=== PATIENT | female | born 1960 | race Caucasian/White ===

== ENCOUNTER 2017-11-08 13:53 | Emergency (ER) | payer OTHER, SELFPAY ==
[2017-11-08 13:57] VITALS: BP 135/74; PULSE 85; RESP 18; TEMP 36.7; O2SAT 99
--- NOTE | 2017-11-08 14:13 | ED.ABDPAIN ---
HPI - Abdominal Pain <Shantal Chung PA-C - Last Filed: 11/08/17 17:41> General Chief Complaint: Abdominal Pain Stated Complaint: PAIN UPPER RT ABD AND BACK,INDIGESTION Time Seen by Provider: 11/08/17 14:12 Source: patient Mode of arrival: ambulatory Limitations: no limitations History of Present Illness HPI narrative: This 57-year-old female complains of onset of gradually worsening right flank and right upper quadrant pain for the last 3 days. She states initially it seemed more in her back, but now she is feeling and more in the right abdomen and feels like it radiates in between. She states that she seems to have severe indigestion whenever she eats, which she describes as belching and heartburn. She states the type of food does not matter, so she has not been eating. She states that the pain is constant, maybe worse with sitting and lying down versus standing up. She does not have pain elsewhere in the abdomen. She has not had fever, nausea, or vomiting. She has not had any urinary symptoms, changes in bowel movements or blood in the stools. She describes her indigestion as clear heartburn that worsens when she lies down and after she eats. She has had this intermittently for years but has also been more persistent recently. She has not had any dyspnea or other new complaints on systems review Related Data Home Medications Medication Instructions Recorded Confirmed minocycline 1 cap PO PRN PRN 11/08/17 11/08/17 Previous Rx's Medication Instructions Recorded meloxicam 15 mg PO DAILY #10 tab 11/08/17 Allergies Allergy/AdvReac Type Severity Reaction Status Date / Time No Known Allergies Allergy Uncoded 09/14/17 12:49 Review of Systems <Shantal Chung PA-C - Last Filed: 11/08/17 17:41> Review of Systems All systems reviewed & are unremarkable except as noted in HPI and below Exam <Shantal Chung PA-C - Last Filed: 11/08/17 17:41> Narrative Exam Narrative: GENERAL APPEARANCE: Patient appears mildly uncomfortable, walking around the exam room, in NAD HEENT: PERRL, EOMI, no scleral icterus NECK: Supple LUNGS: Clear to auscultation bilaterally. HEART: Rate and rhythm regular, normal S1 and S2, no S3 or S4. ABDOMEN: Soft, nondistended, bowel sounds present x 4 quadrants, no masses palpable, no hepatosplenomegaly. She is tender most in the right upper quadrant a few cm distal to the costal margin, no tenderness elsewhere in the abdomen, no guarding or rebound, no CVAT EXTREMITIES: No edema, no cyanosis DERMATOLOGIC: No jaundice or exanthem NEUROLOGIC: Alert and oriented with normal speech and coordination Initial Vital Signs Initial Vital Signs: Vital Signs Temperature 98.0 F 11/08/17 13:57 Pulse Rate 85 11/08/17 13:57 Respiratory Rate 18 11/08/17 13:57 Blood Pressure 135/74 H 11/08/17 13:57 Pulse Oximetry 99 11/08/17 13:57 <Kevon Delarosa MD - Last Filed: 12/23/17 07:36> Initial Vital Signs Initial Vital Signs: Vital Signs Temperature 98.0 F 11/08/17 13:57 Pulse Rate 85 11/08/17 13:57 Respiratory Rate 18 11/08/17 13:57 Blood Pressure 135/74 H 11/08/17 13:57 Pulse Oximetry 99 11/08/17 13:57 Course <Shantal Chung PA-C - Last Filed: 11/08/17 17:41> Hospital Course: Patient reported that right upper quadrant pain was largely resolved and acid reflux symptoms completely resolved medications. Discussed no clear findings to determine the source of her right upper quadrant pain on lab studies or ultrasound, however unlikely to be an acute surgical issue. Since she is feeling better, advised medications as on discharge, and close follow-up (see PCP tomorrow). Advised to return if acutely worsening symptoms again and she is agreeable Orders Ordered: Discontinued Medications Al Hydrox/Mg Hydrox/Simethicone 20 ml/ Lidocaine HCl 15 ml 0 ml PO NOW ONE Stop: 11/08/17 14:28 Last Admin: 11/08/17 15:01 Dose: 15 ml Sodium Chloride (Normal Saline 0.9%) 1,000 mls @ 1,000 mls/hr IV BOLUS ONE Stop: 11/08/17 15:26 Last Infusion: 11/08/17 15:55 Dose: 0 mls/hr Admin: 11/08/17 15:00 Dose: 1,000 mls/hr Ketorolac Tromethamine (Toradol) 15 mg IV NOW ONE Stop: 11/08/17 14:28 Last Admin: 11/08/17 15:02 Dose: 15 mg Ketorolac Tromethamine (Toradol) 15 mg IV NOW ONE Stop: 11/08/17 15:53 Last Admin: 11/08/17 15:53 Dose: 15 mg Pantoprazole Sodium (Protonix) 40 mg IV NOW ONE Stop: 11/08/17 14:28 Last Admin: 11/08/17 15:01 Dose: 40 mg Vital Signs - 8 hr 11/08/17 13:57 11/08/17 14:36 11/08/17 15:13 Temperature 98.0 F Pulse Rate 85 83 78 Respiratory Rate 18 20 Blood Pressure 135/74 H Blood Pressure [Left Arm] 130/82 H 126/84 H Pulse Oximetry 99 97 98 11/08/17 16:00 11/08/17 17:00 Temperature Pulse Rate 78 75 Respiratory Rate 18 Blood Pressure Blood Pressure [Left Arm] 142/79 H 103/58 L Pulse Oximetry 96 96 <Kevon Delarosa MD - Last Filed: 12/23/17 07:36> Orders Ordered: Discontinued Medications Al Hydrox/Mg Hydrox/Simethicone 20 ml/ Lidocaine HCl 15 ml 0 ml PO NOW ONE Stop: 11/08/17 14:28 Last Admin: 11/08/17 15:01 Dose: 15 ml Sodium Chloride (Normal Saline 0.9%) 1,000 mls @ 1,000 mls/hr IV BOLUS ONE Stop: 11/08/17 15:26 Last Infusion: 11/08/17 15:55 Dose: 0 mls/hr Admin: 11/08/17 15:00 Dose: 1,000 mls/hr Ketorolac Tromethamine (Toradol) 15 mg IV NOW ONE Stop: 11/08/17 14:28 Last Admin: 11/08/17 15:02 Dose: 15 mg Ketorolac Tromethamine (Toradol) 15 mg IV NOW ONE Stop: 11/08/17 15:53 Last Admin: 11/08/17 15:53 Dose: 15 mg Pantoprazole Sodium (Protonix) 40 mg IV NOW ONE Stop: 11/08/17 14:28 Last Admin: 11/08/17 15:01 Dose: 40 mg Vital Signs - 8 hr 11/08/17 13:57 11/08/17 14:36 11/08/17 15:13 Temperature 98.0 F Pulse Rate 85 83 78 Respiratory Rate 18 20 Blood Pressure 135/74 H Blood Pressure [Left Arm] 130/82 H 126/84 H Pulse Oximetry 99 97 98 11/08/17 16:00 11/08/17 17:00 Temperature Pulse Rate 78 75 Respiratory Rate 18 Blood Pressure Blood Pressure [Left Arm] 142/79 H 103/58 L Pulse Oximetry 96 96 MDM - Abdominal Pain <Shantal Chung PA-C - Last Filed: 11/08/17 17:41> Lab Data Attestation: I reviewed the patient's lab results. Result diagrams: 11/08/17 14:50 11/08/17 14:50 Lab Results 11/08/17 11/08/17 Range/Units 14:50 14:50 WBC 5.7 (4.5-11.0) X10^3/uL RBC 4.74 (4.0-5.2) X10^6/uL Hgb 15.0 (12.0-16.0) g/dL Hct 42.3 (36-46) % MCV 89.3 (80-100) fL MCH 31.6 (26-34) PG MCHC 35.4 (30-36) % RDW 12.6 (11.6-14.8) % Plt Count 204 (150-400) X10^3/uL Neut % (Auto) 52.1 (50-75) % Lymph % (Auto) 39.9 (25-40) % [place] % (Auto) 6.3 (3-14) % Eos % (Auto) 1.5 L (2-4) % Baso % (Auto) 0.2 (0-2) % Neut # (Auto) 3000 (1466-9530) /uL Sodium 142 (137-145) mmol/L Potassium 3.8 (3.4-5.1) mmol/L Chloride 102 (98-107) mmol/L Carbon Dioxide 26 (22-32) mmol/L BUN 15 (7-17) mg/dL Creatinine 0.60 (0.52-1.04) mg/dL Estimated GFR > 60.0 (>60) mL/min BUN/Creatinine Ratio 25.0 H (6-22) Glucose 102 H (70-100) mg/dL Calcium 9.8 (8.4-10.2) mg/dL Total Bilirubin 1.1 (0.2-1.3) mg/dL AST 32 (14-36) IU/L ALT 43 (9-52) IU/L Alkaline Phosphatase 66 (38-126) U/L Troponin I < 0.012 (0.01-0.034) ng/mL Total Protein 7.8 (6.3-8.2) g/dL Albumin 4.5 (3.5-5.0) g/dL Globulin 3.3 (1.7-4.1) g/dL Albumin/Globulin Ratio 1.4 (1.0-2.8) Lipase 92 (23-300) U/L Imaging Data US - abdomen: Radiologist's impression: View Report History [address] [address] Ultrasound Report Signed Patient: Yuliya Shore MR#: [id number] : 1960 Acct:[id number] Age/Sex: 57 / F Date of Service: 11/08/17 Loc: ED Accession Number: [id number] Procedure: US abdomen complete Ordering Provider: Shantal Chung P.A-C PROCEDURE: US ABDOMEN COMPLETE INDICATIONS: RUQ pain TECHNIQUE: Real-time scanning was performed of the abdominal and retroperitoneal organs, with image documentation. COMPARISON: None. FINDINGS: Liver: Liver is normal in size and demonstrates diffusely increased echotexture. There is a 4 mm cyst in the left hepatic lobe. Gallbladder: No gallstones. No gallbladder wall thickening, pericholecystic fluid or sonographic June's sign. Biliary ducts: Intrahepatic bile ducts are non-dilated. Extrahepatic bile duct caliber measures 5 mm. Normal is 6-7 mm or less in diameter, or 10 mm or less post-cholecystectomy. Pancreas: Visualized portions of the pancreas are sonographically normal. Spleen: Spleen is normal in size and homogeneous in echotexture. Kidneys: Kidneys are normal in size and echotexture. Right kidney measures 12.7 cm long; left kidney measures 12.5 cm long. No hydronephrosis or nephrolithiasis. No solid masses. Aorta: Visualized aorta is normal in caliber at less than 3 cm. Iliacs: Proximal common iliac arteries are normal in caliber at less than 2.5 cm. IVC: Intrahepatic inferior vena cava is patent. Miscellaneous: No free abdominal fluid. IMPRESSION: 1. Diffusely increased hepatic echotexture. This finding is most likely secondary to hepatic fatty infiltration although other hepatocellular disease may have a similar appearance. Recommend clinical correlation. 2. A small hepatic cyst in the left hepatic lobe. 3. Normal ultrasound appearance of gallbladder. No gallstones. Dictated by: Mildred Mcfadden M.D. on 11/08/2017 at 16:44 Approved by: Mildred Mcfadden M.D. on 11/08/2017 at 16:46 ECG Data Attestation: I personally reviewed and interpreted this ECG as follows: (NSR with rate 76, normal P are and QT intervals, right bundle pattern) Prior ECG tracings: not available for review <Kevon Delarosa MD - Last Filed: 12/23/17 07:36> Lab Data Lab Results 11/08/17 11/08/17 Range/Units 14:50 14:50 WBC 5.7 (4.5-11.0) X10^3/uL RBC 4.74 (4.0-5.2) X10^6/uL Hgb 15.0 (12.0-16.0) g/dL Hct 42.3 (36-46) % MCV 89.3 (80-100) fL MCH 31.6 (26-34) PG MCHC 35.4 (30-36) % RDW 12.6 (11.6-14.8) % Plt Count 204 (150-400) X10^3/uL Neut % (Auto) 52.1 (50-75) % Lymph % (Auto) 39.9 (25-40) % [place] % (Auto) 6.3 (3-14) % Eos % (Auto) 1.5 L (2-4) % Baso % (Auto) 0.2 (0-2) % Neut # (Auto) 3000 (9014-0186) /uL Sodium 142 (137-145) mmol/L Potassium 3.8 (3.4-5.1) mmol/L Chloride 102 (98-107) mmol/L Carbon Dioxide 26 (22-32) mmol/L BUN 15 (7-17) mg/dL Creatinine 0.60 (0.52-1.04) mg/dL Estimated GFR > 60.0 (>60) mL/min BUN/Creatinine Ratio 25.0 H (6-22) Glucose 102 H (70-100) mg/dL Calcium 9.8 (8.4-10.2) mg/dL Total Bilirubin 1.1 (0.2-1.3) mg/dL AST 32 (14-36) IU/L ALT 43 (9-52) IU/L Alkaline Phosphatase 66 (38-126) U/L Troponin I < 0.012 (0.01-0.034) ng/mL Total Protein 7.8 (6.3-8.2) g/dL Albumin 4.5 (3.5-5.0) g/dL Globulin 3.3 (1.7-4.1) g/dL Albumin/Globulin Ratio 1.4 (1.0-2.8) Lipase 92 (23-300) U/L Discharge Plan Departure Patient Disposition: Home, Self-Care Clinical Impression: Colicky right upper quadrant pain, Acid reflux Discharge Date/Time: 11/08/17 17:37 Interventions: ED Discharge Assessment Last Done: 11/08/17 17:35 Instructions: DI for Gastroesophageal Reflux Disease (GERD), DI for Abdominal Pain-Adult Activity Restrictions/Additional Instructions: Return as we talked about if you have acutely worsening symptoms, otherwise it is reasonable to continue medication trial at home since you are feeling better. Start the prescription meloxicam for anti-inflammatory/pain reliever. You can also take Tylenol as needed. Add [id number] omeprazole (Prilosec) 20mg twice daily or lansoprazole (Prevacid) 15mg twice daily taken about 45 minutes before eating. Also have some liquid Maalox, Mylanta, or Gaviscon on and and take as needed for reflux and pain. Make sure that you follow-up with your primary care provider tomorrow for recheck. As we discussed, it is important to follow abdominal pain very closely. Prescriptions: New meloxicam 15 mg tablet 15 mg PO DAILY Qty: 10 RF: 0 No Action minocycline 1 cap PO PRN PRN (Reason: rosacia) RF: 0 Referrals: [facility] [Provider Group] <Kevon Delarosa MD - Last Filed: 12/23/17 07:36> Sign Out Provider Sign Out Attestation: The PA/AUTOMATION AND CONTROLS INSTRUCTOR functioned independently for the care of this pt, I was available, but not asked to participate in care. I am unable to determine appropriateness of management without personally examining the pt.
--- NOTE | 2017-11-08 14:27 | DI.US.S_ITS ---
PROCEDURE: US ABDOMEN COMPLETE INDICATIONS: RUQ pain TECHNIQUE: Real-time scanning was performed of the abdominal and retroperitoneal organs, with image documentation. COMPARISON: None. FINDINGS: Liver: Liver is normal in size and demonstrates diffusely increased echotexture. There is a 4 mm cyst in the left hepatic lobe. Gallbladder: No gallstones. No gallbladder wall thickening, pericholecystic fluid or sonographic June's sign. Biliary ducts: Intrahepatic bile ducts are non-dilated. Extrahepatic bile duct caliber measures 5 mm. Normal is 6-7 mm or less in diameter, or 10 mm or less post-cholecystectomy. Pancreas: Visualized portions of the pancreas are sonographically normal. Spleen: Spleen is normal in size and homogeneous in echotexture. Kidneys: Kidneys are normal in size and echotexture. Right kidney measures 12.7 cm long; left kidney measures 12.5 cm long. No hydronephrosis or nephrolithiasis. No solid masses. Aorta: Visualized aorta is normal in caliber at less than 3 cm. Iliacs: Proximal common iliac arteries are normal in caliber at less than 2.5 cm. IVC: Intrahepatic inferior vena cava is patent. Miscellaneous: No free abdominal fluid. IMPRESSION: 1. Diffusely increased hepatic echotexture. This finding is most likely secondary to hepatic fatty infiltration although other hepatocellular disease may have a similar appearance. Recommend clinical correlation. 2. A small hepatic cyst in the left hepatic lobe. 3. Normal ultrasound appearance of gallbladder. No gallstones. Dictated by: Mildred Mcfadden M.D. on 11/08/2017 at 16:44 Approved by: Mildred Mcfadden M.D. on 11/08/2017 at 16:46
--- NOTE | 2017-11-08 14:34 | ED_ITS ---
HPI - Abdominal Pain <Shantal Chung PA-C - Last Filed: 11/08/17 17:41> General Chief Complaint: Abdominal Pain Stated Complaint: PAIN UPPER RT ABD AND BACK,INDIGESTION Time Seen by Provider: 11/08/17 14:12 Source: patient Mode of arrival: ambulatory Limitations: no limitations History of Present Illness HPI narrative: This 57-year-old female complains of onset of gradually worsening right flank and right upper quadrant pain for the last 3 days. She states initially it seemed more in her back, but now she is feeling and more in the right abdomen and feels like it radiates in between. She states that she seems to have severe indigestion whenever she eats, which she describes as belching and heartburn. She states the type of food does not matter, so she has not been eating. She states that the pain is constant, maybe worse with sitting and lying down versus standing up. She does not have pain elsewhere in the abdomen. She has not had fever, nausea, or vomiting. She has not had any urinary symptoms, changes in bowel movements or blood in the stools. She describes her indigestion as clear heartburn that worsens when she lies down and after she eats. She has had this intermittently for years but has also been more persistent recently. She has not had any dyspnea or other new complaints on systems review Related Data Home Medications Medication Instructions Recorded Confirmed minocycline 1 cap PO PRN PRN 11/08/17 11/08/17 Previous Rx's Medication Instructions Recorded meloxicam 15 mg PO DAILY #10 tab 11/08/17 Allergies Allergy/AdvReac Type Severity Reaction Status Date / Time No Known Allergies Allergy Uncoded 09/14/17 12:49 Review of Systems <Shantal Chung PA-C - Last Filed: 11/08/17 17:41> Review of Systems All systems reviewed & are unremarkable except as noted in HPI and below Exam <Shantal Chung PA-C - Last Filed: 11/08/17 17:41> Narrative Exam Narrative: GENERAL APPEARANCE: Patient appears mildly uncomfortable, walking around the exam room, in NAD HEENT: PERRL, EOMI, no scleral icterus NECK: Supple LUNGS: Clear to auscultation bilaterally. HEART: Rate and rhythm regular, normal S1 and S2, no S3 or S4. ABDOMEN: Soft, nondistended, bowel sounds present x 4 quadrants, no masses palpable, no hepatosplenomegaly. She is tender most in the right upper quadrant a few cm distal to the costal margin, no tenderness elsewhere in the abdomen, no guarding or rebound, no CVAT EXTREMITIES: No edema, no cyanosis DERMATOLOGIC: No jaundice or exanthem NEUROLOGIC: Alert and oriented with normal speech and coordination Initial Vital Signs Initial Vital Signs: Vital Signs Temperature 98.0 F 11/08/17 13:57 Pulse Rate 85 11/08/17 13:57 Respiratory Rate 18 11/08/17 13:57 Blood Pressure 135/74 H 11/08/17 13:57 Pulse Oximetry 99 11/08/17 13:57 <Kevon Delarosa MD - Last Filed: 12/23/17 07:36> Initial Vital Signs Initial Vital Signs: Vital Signs Temperature 98.0 F 11/08/17 13:57 Pulse Rate 85 11/08/17 13:57 Respiratory Rate 18 11/08/17 13:57 Blood Pressure 135/74 H 11/08/17 13:57 Pulse Oximetry 99 11/08/17 13:57 Course <Shantal Chung PA-C - Last Filed: 11/08/17 17:41> Hospital Course: Patient reported that right upper quadrant pain was largely resolved and acid reflux symptoms completely resolved medications. Discussed no clear findings to determine the source of her right upper quadrant pain on lab studies or ultrasound, however unlikely to be an acute surgical issue. Since she is feeling better, advised medications as on discharge, and close follow-up (see PCP tomorrow). Advised to return if acutely worsening symptoms again and she is agreeable Orders Ordered: Discontinued Medications Al Hydrox/Mg Hydrox/Simethicone 20 ml/ Lidocaine HCl 15 ml 0 ml PO NOW ONE Stop: 11/08/17 14:28 Last Admin: 11/08/17 15:01 Dose: 15 ml Sodium Chloride (Normal Saline 0.9%) 1,000 mls @ 1,000 mls/hr IV BOLUS ONE Stop: 11/08/17 15:26 Last Infusion: 11/08/17 15:55 Dose: 0 mls/hr Admin: 11/08/17 15:00 Dose: 1,000 mls/hr Ketorolac Tromethamine (Toradol) 15 mg IV NOW ONE Stop: 11/08/17 14:28 Last Admin: 11/08/17 15:02 Dose: 15 mg Ketorolac Tromethamine (Toradol) 15 mg IV NOW ONE Stop: 11/08/17 15:53 Last Admin: 11/08/17 15:53 Dose: 15 mg Pantoprazole Sodium (Protonix) 40 mg IV NOW ONE Stop: 11/08/17 14:28 Last Admin: 11/08/17 15:01 Dose: 40 mg Vital Signs - 8 hr 11/08/17 13:57 11/08/17 14:36 11/08/17 15:13 Temperature 98.0 F Pulse Rate 85 83 78 Respiratory Rate 18 20 Blood Pressure 135/74 H Blood Pressure [Left Arm] 130/82 H 126/84 H Pulse Oximetry 99 97 98 11/08/17 16:00 11/08/17 17:00 Temperature Pulse Rate 78 75 Respiratory Rate 18 Blood Pressure Blood Pressure [Left Arm] 142/79 H 103/58 L Pulse Oximetry 96 96 <Kevon Delarosa MD - Last Filed: 12/23/17 07:36> Orders Ordered: Discontinued Medications Al Hydrox/Mg Hydrox/Simethicone 20 ml/ Lidocaine HCl 15 ml 0 ml PO NOW ONE Stop: 11/08/17 14:28 Last Admin: 11/08/17 15:01 Dose: 15 ml Sodium Chloride (Normal Saline 0.9%) 1,000 mls @ 1,000 mls/hr IV BOLUS ONE Stop: 11/08/17 15:26 Last Infusion: 11/08/17 15:55 Dose: 0 mls/hr Admin: 11/08/17 15:00 Dose: 1,000 mls/hr Ketorolac Tromethamine (Toradol) 15 mg IV NOW ONE Stop: 11/08/17 14:28 Last Admin: 11/08/17 15:02 Dose: 15 mg Ketorolac Tromethamine (Toradol) 15 mg IV NOW ONE Stop: 11/08/17 15:53 Last Admin: 11/08/17 15:53 Dose: 15 mg Pantoprazole Sodium (Protonix) 40 mg IV NOW ONE Stop: 11/08/17 14:28 Last Admin: 11/08/17 15:01 Dose: 40 mg Vital Signs - 8 hr 11/08/17 13:57 11/08/17 14:36 11/08/17 15:13 Temperature 98.0 F Pulse Rate 85 83 78 Respiratory Rate 18 20 Blood Pressure 135/74 H Blood Pressure [Left Arm] 130/82 H 126/84 H Pulse Oximetry 99 97 98 11/08/17 16:00 11/08/17 17:00 Temperature Pulse Rate 78 75 Respiratory Rate 18 Blood Pressure Blood Pressure [Left Arm] 142/79 H 103/58 L Pulse Oximetry 96 96 MDM - Abdominal Pain <Shantal Chung PA-C - Last Filed: 11/08/17 17:41> Lab Data Attestation: I reviewed the patient's lab results. Result diagrams: 11/08/17 14:50 11/08/17 14:50 Lab Results 11/08/17 11/08/17 Range/Units 14:50 14:50 WBC 5.7 (4.5-11.0) X10^3/uL RBC 4.74 (4.0-5.2) X10^6/uL Hgb 15.0 (12.0-16.0) g/dL Hct 42.3 (36-46) % MCV 89.3 (80-100) fL MCH 31.6 (26-34) PG MCHC 35.4 (30-36) % RDW 12.6 (11.6-14.8) % Plt Count 204 (150-400) X10^3/uL Neut % (Auto) 52.1 (50-75) % Lymph % (Auto) 39.9 (25-40) % [place] % (Auto) 6.3 (3-14) % Eos % (Auto) 1.5 L (2-4) % Baso % (Auto) 0.2 (0-2) % Neut # (Auto) 3000 (4250-5984) /uL Sodium 142 (137-145) mmol/L Potassium 3.8 (3.4-5.1) mmol/L Chloride 102 (98-107) mmol/L Carbon Dioxide 26 (22-32) mmol/L BUN 15 (7-17) mg/dL Creatinine 0.60 (0.52-1.04) mg/dL Estimated GFR > 60.0 (>60) mL/min BUN/Creatinine Ratio 25.0 H (6-22) Glucose 102 H (70-100) mg/dL Calcium 9.8 (8.4-10.2) mg/dL Total Bilirubin 1.1 (0.2-1.3) mg/dL AST 32 (14-36) IU/L ALT 43 (9-52) IU/L Alkaline Phosphatase 66 (38-126) U/L Troponin I < 0.012 (0.01-0.034) ng/mL Total Protein 7.8 (6.3-8.2) g/dL Albumin 4.5 (3.5-5.0) g/dL Globulin 3.3 (1.7-4.1) g/dL Albumin/Globulin Ratio 1.4 (1.0-2.8) Lipase 92 (23-300) U/L Imaging Data US - abdomen: Radiologist's impression: View Report History [address] [address] Ultrasound Report Signed Patient: Yuliya Shore MR#: [id number] : 1960 Acct:[id number] Age/Sex: 57 / F Date of Service: 11/08/17 Loc: ED Accession Number: [id number] Procedure: US abdomen complete Ordering Provider: Shantal Chung P.A-C PROCEDURE: US ABDOMEN COMPLETE INDICATIONS: RUQ pain TECHNIQUE: Real-time scanning was performed of the abdominal and retroperitoneal organs, with image documentation. COMPARISON: None. FINDINGS: Liver: Liver is normal in size and demonstrates diffusely increased echotexture. There is a 4 mm cyst in the left hepatic lobe. Gallbladder: No gallstones. No gallbladder wall thickening, pericholecystic fluid or sonographic June's sign. Biliary ducts: Intrahepatic bile ducts are non-dilated. Extrahepatic bile duct caliber measures 5 mm. Normal is 6-7 mm or less in diameter, or 10 mm or less post-cholecystectomy. Pancreas: Visualized portions of the pancreas are sonographically normal. Spleen: Spleen is normal in size and homogeneous in echotexture. Kidneys: Kidneys are normal in size and echotexture. Right kidney measures 12.7 cm long; left kidney measures 12.5 cm long. No hydronephrosis or nephrolithiasis. No solid masses. Aorta: Visualized aorta is normal in caliber at less than 3 cm. Iliacs: Proximal common iliac arteries are normal in caliber at less than 2.5 cm. IVC: Intrahepatic inferior vena cava is patent. Miscellaneous: No free abdominal fluid. IMPRESSION: 1. Diffusely increased hepatic echotexture. This finding is most likely secondary to hepatic fatty infiltration although other hepatocellular disease may have a similar appearance. Recommend clinical correlation. 2. A small hepatic cyst in the left hepatic lobe. 3. Normal ultrasound appearance of gallbladder. No gallstones. Dictated by: Mildred Mcfadden M.D. on 11/08/2017 at 16:44 Approved by: Mildred Mcfadden M.D. on 11/08/2017 at 16:46 ECG Data Attestation: I personally reviewed and interpreted this ECG as follows: (NSR with rate 76, normal P are and QT intervals, right bundle pattern) Prior ECG tracings: not available for review <Kevon Delarosa MD - Last Filed: 12/23/17 07:36> Lab Data Lab Results 11/08/17 11/08/17 Range/Units 14:50 14:50 WBC 5.7 (4.5-11.0) X10^3/uL RBC 4.74 (4.0-5.2) X10^6/uL Hgb 15.0 (12.0-16.0) g/dL Hct 42.3 (36-46) % MCV 89.3 (80-100) fL MCH 31.6 (26-34) PG MCHC 35.4 (30-36) % RDW 12.6 (11.6-14.8) % Plt Count 204 (150-400) X10^3/uL Neut % (Auto) 52.1 (50-75) % Lymph % (Auto) 39.9 (25-40) % [place] % (Auto) 6.3 (3-14) % Eos % (Auto) 1.5 L (2-4) % Baso % (Auto) 0.2 (0-2) % Neut # (Auto) 3000 (4737-0632) /uL Sodium 142 (137-145) mmol/L Potassium 3.8 (3.4-5.1) mmol/L Chloride 102 (98-107) mmol/L Carbon Dioxide 26 (22-32) mmol/L BUN 15 (7-17) mg/dL Creatinine 0.60 (0.52-1.04) mg/dL Estimated GFR > 60.0 (>60) mL/min BUN/Creatinine Ratio 25.0 H (6-22) Glucose 102 H (70-100) mg/dL Calcium 9.8 (8.4-10.2) mg/dL Total Bilirubin 1.1 (0.2-1.3) mg/dL AST 32 (14-36) IU/L ALT 43 (9-52) IU/L Alkaline Phosphatase 66 (38-126) U/L Troponin I < 0.012 (0.01-0.034) ng/mL Total Protein 7.8 (6.3-8.2) g/dL Albumin 4.5 (3.5-5.0) g/dL Globulin 3.3 (1.7-4.1) g/dL Albumin/Globulin Ratio 1.4 (1.0-2.8) Lipase 92 (23-300) U/L Discharge Plan Departure Patient Disposition: Home, Self-Care Clinical Impression: Colicky right upper quadrant pain, Acid reflux Discharge Date/Time: 11/08/17 17:37 Interventions: ED Discharge Assessment Last Done: 11/08/17 17:35 Instructions: DI for Gastroesophageal Reflux Disease (GERD), DI for Abdominal Pain-Adult Activity Restrictions/Additional Instructions: Return as we talked about if you have acutely worsening symptoms, otherwise it is reasonable to continue medication trial at home since you are feeling better. Start the prescription meloxicam for anti-inflammatory/pain reliever. You can also take Tylenol as needed. Add [id number] omeprazole (Prilosec ) 20mg twice daily or lansoprazole (Prevacid) 15mg twice daily taken about 45 minutes before eating. Also have some liquid Maalox, Mylanta, or Gaviscon on and and take as needed for reflux and pain. Make sure that you follow-up with your primary care provider tomorrow for recheck. As we discussed, it is important to follow abdominal pain very closely. Prescriptions: New meloxicam 15 mg tablet 15 mg PO DAILY Qty: 10 RF: 0 No Action minocycline 1 cap PO PRN PRN (Reason: rosacia) RF: 0 Referrals: [facility] [Provider Group] <Kevon Delarosa MD - Last Filed: 12/23/17 07:36> Sign Out Provider Sign Out Attestation: The PA/PET SITTER functioned independently for the care of this pt, I was available, but not asked to participate in care. I am unable to determine appropriateness of management without personally examining the pt.
[2017-11-08 14:36] VITALS: BP 130/82; PULSE 83; RESP 20; O2SAT 97
[2017-11-08 15:00] LABS: Add Manual Diff / Slide Review NO; Basophils Percent Auto 0.2 % (0-2); Eosinophils Percent Auto 1.5 % (2-4); Hematocrit 42.3 % (36-46); Lymphocytes Percent Auto 39.9 % (25-40); Mean Corpuscular HGB Conc 35.4 % (30-36); Mean Corpuscular Hemoglobin 31.6 PG (26-34); Mean Corpuscular Volume 89.3 fL (80-100); Monocytes Percent Auto 6.3 % (3-14); Neutrophils Absolute Auto 3000 /uL (3000-5900); Neutrophils Percent Auto 52.1 % (50-75); Platelet Count 204 X10^3/uL (150-400); Red Blood Cell Count 4.74 X10^6/uL (4.0-5.2); Red Cell Distribution Width 12.6 % (11.6-14.8); White Blood Cell Count 5.7 X10^3/uL (4.5-11.0)
[2017-11-08] MEDS: SODIUM CHLORIDE 0.9% 1,000 ML 1000 ML IV (15:00)
[2017-11-08] MEDS: PANTOPRAZOLE 40 MG VIAL IV (15:01)
[2017-11-08] MEDS: MAG HYDROX/ALUMINUM/SIMETH SUS 20 ML, LIDOCAINE VISCOUS 2% 15 ML PO (15:01)
[2017-11-08] MEDS: KETOROLAC 15 MG/ML VIAL IV (15:02)
--- NOTE | 2017-11-08 15:02 | PC.NURSE ---
UNABLE TO SCAN TORADOL VIAL PROVIDER AWARE. PHARMACY CONTACTED.
[2017-11-08 15:13] VITALS: BP 126/84; PULSE 78; O2SAT 98
[2017-11-08 15:26] LABS: Alanine Aminotransferase 43 IU/L (9-52); Albumin 4.5 g/dL (3.5-5.0); Albumin Globulin Ratio 1.4 (1.0-2.8); Alkaline Phosphatase 66 U/L (38-126); Aspartate Aminotransferase 32 IU/L (14-36); Bilirubin Total 1.1 mg/dL (0.2-1.3); Blood Urea Nitrogen 15 mg/dL (7-17); Calcium 9.8 mg/dL (8.4-10.2); Carbon Dioxide 26 mmol/L (22-32); Chloride 102 mmol/L (98-107); Estimated Glomerular Filt Rate > 60.0 mL/min (>60); Globulin 3.3 g/dL (1.7-4.1); Glucose 102 mg/dL (70-100); HEMOLYSIS < 15 (0-50); Lipase 92 U/L (23-300); Potassium 3.8 mmol/L (3.4-5.1); Sodium 142 mmol/L (137-145); Total Protein 7.8 g/dL (6.3-8.2)
[2017-11-08 15:37] LABS: Troponin I < 0.012 ng/mL (0.01-0.034)
[2017-11-08] MEDS: KETOROLAC 60 MG/2 ML VIAL 15 MG IV (15:53)
[2017-11-08 16:00] VITALS: BP 142/79; PULSE 78; RESP 18; O2SAT 96
[2017-11-08 17:00] VITALS: BP 103/58; PULSE 75; O2SAT 96
[2017-11-08 17:35] VITALS: BP 103/58; PULSE 77; RESP 20; TEMP 36.6; O2SAT 98
== END 2017-11-08 17:37 | disposition home or self-care (01) ==
PROVIDERS: Emergency Provider Internal Medicine
DX: K21.9 Gastro-esophageal reflux disease without esophagitis (principal)
CPT/HCPCS: 36591; 76700; 80053; 81003; 83690; 84484; 85025; 93005; 96361; 96374; 96375; 96376; 99283; 99285; C9113; J1885

== ENCOUNTER → 2019-07-25 08:58 | Outpatient (CLI) | payer OTHER, SELFPAY ==
--- NOTE | 2019-07-25 | DI.MG.S_ITS ---
BILATERAL DIGITAL SCREENING MAMMOGRAM 3D/2D WITH CAD: 07/25/2019 CLINICAL: Routine screening. Comparison is made to exams dated: 06/08/2018 mammogram, 04/14/2017 mammogram, and 04/12/2016 mammogram - [facility]. There are scattered fibroglandular elements in both breasts. Current study was also evaluated with a Computer Aided Detection (CAD) system. No significant masses, calcifications, or other findings are seen in either breast. There has been no significant interval change. IMPRESSION: NEGATIVE There is no mammographic evidence of malignancy. A 1 year screening mammogram is recommended. This exam was interpreted at Station ID: [id number]. NOTE: For mammograms, a report in lay terms will be sent to the patient. Approximately 15% of breast malignancies will not be visualized mammographically. In the management of a palpable breast mass, a negative mammogram must not discourage biopsy of a clinically suspicious lesion. Electronically Signed By: Sridhar arambula/molly:07/25/2019 19:55:04 letter sent: Normal Exam ACR BI-RADS Category 1: Negative [id number]
== END ==
PROVIDERS: PCP Family Medicine; Referring Provider Family Medicine; Visit Provider Family Medicine
DX: Z12.31 Encounter for screening mammogram for malignant neoplasm of breast (principal)
CPT/HCPCS: 77063; 77067

== ENCOUNTER → 2020-10-24 10:26 | Outpatient (CLI) | payer OTHER, SELFPAY ==
--- NOTE | 2020-10-24 | DI.MG.S_ITS ---
BILATERAL DIGITAL SCREENING MAMMOGRAM 3D/2D WITH CAD: 10/24/2020 CLINICAL: Routine screening. Comparison is made to exams dated: 07/25/2019 mammogram - [facility], 06/08/2018 mammogram, and 04/14/2017 mammogram - [facility]. There are scattered fibroglandular elements in both breasts. Current study was also evaluated with a Computer Aided Detection (CAD) system. No significant masses, calcifications, or other findings are seen in either breast. There has been no significant interval change. IMPRESSION: NEGATIVE There is no mammographic evidence of malignancy. A 1 year screening mammogram is recommended. This exam was interpreted at Station ID: [id number]. NOTE: For mammograms, a report in lay terms will be sent to the patient. Approximately 15% of breast malignancies will not be visualized mammographically. In the management of a palpable breast mass, a negative mammogram must not discourage biopsy of a clinically suspicious lesion. Electronically Signed By: Ed Curiel acr/penrad:10/24/2020 12:07:11 letter sent: Normal Exam ACR BI-RADS Category 1: Negative [id number]
== END ==
PROVIDERS: PCP Nurse Practitioner Family; Referring Provider Family Medicine; Visit Provider Family Medicine
DX: Z12.31 Encounter for screening mammogram for malignant neoplasm of breast (principal)
CPT/HCPCS: 77063; 77067

== ENCOUNTER 2021-08-02 10:11 | Emergency (ER) | payer OTHER, SELFPAY ==
[2021-08-02] VITALS (10 sets, daily range): BP systolic 114–141; BP diastolic 55–74; PULSE 68–79; RESP 15–23; TEMP 36.2; O2SAT 94–97; BMI 29.5
--- NOTE | 2021-08-02 10:19 | DI.RAD.S_ITS ---
PROCEDURE: XR CHEST 1V INDICATIONS: chest pain TECHNIQUE: One view of the chest was acquired. COMPARISON: None. FINDINGS: Surgical changes and devices: None. Lungs and pleura: Lungs are clear. No pleural effusions or pneumothorax. Mediastinum: Mediastinal contours appear normal. Heart size is normal. Bones and chest wall: No suspicious bony lesions. Overlying soft tissues appear unremarkable. IMPRESSION: No acute cardiopulmonary abnormalities or focal airspace disease. Dictated by: Sridhar Sunshine M.D. on 08/02/2021 at 9:49 Approved by: Sridhar Sunshine M.D. on 08/02/2021 at 9:49
--- NOTE | 2021-08-02 10:22 | ED_ITS ---
HPI - Chest Pain General Chief Complaint: Chest Pain Stated Complaint: band of tightness underneath breasts/back Time Seen by Provider: 08/02/21 10:18 Source: patient Mode of arrival: Ambulatory Limitations: no limitations Limitations: no limitations History of Present Illness HPI narrative: This is a 61-year-old female comes emergency department with sensation of a band of tightness underneath her breasts across her chest her just upper epigastric region. She states she had episode about a week ago that resolved. Yesterday she began having discomfort again, she states it resolved before she went to sleep but when she woke up this morning it returned when she stood up. She states when lying in bed it was not present but when she got up she noticed at about 8:00 a.m. this morning. She states that sitting seems to make it worse. Exertion does not seem to cause any provocation. She denies any shortness of breath. She describes it as a band across her chest and wearing a broth worsens the symptoms. Or increases them. No fevers, no cold cough or congestion. No orthopnea. She has not had any skin changes or rashes. She had some mild nausea this morning but no vomiting. No issues with bowel movements or urination. She is on a statin daily, no history of hypertension, diabetes or other known medical issues. She does not take an aspirin or any anticoagulants. She has had orthopedic surgery on her finger but no other surgeries. No allergies to medications. No tobacco she drinks about 8 alcoholic drinks weekly, no illicit. She is accompanied by her spouse and her primary care is Dr. Ching at the [facility]. Related Data Home Medications Medication Instructions Recorded Confirmed minocycline 1 cap PO PRN PRN 11/08/17 11/08/17 Previous Rx's Medication Instructions Recorded meloxicam 15 mg tablet 15 mg PO DAILY #10 tab 11/08/17 Allergies Allergy/AdvReac Type Severity Reaction Status Date / Time No Known Drug Allergies Allergy Verified 08/02/21 10:19 Review of Systems Review of Systems ROS Unobtainable: All systems reviewed & are unremarkable except as noted in HPI and below Patient History Medical History Heartburn Hyperlipidemia Nephrolithiasis Rosacea Surgical History History of History of laparoscopy Social History Smoking Status: Never smoker Smoking Status: Never smoker alcohol intake frequency: a few times a week Alcohol type: wine Substance Use Type: does not use Exam Narrative Exam Narrative: GENERAL: Alert and oriented x three, female in mild distress. HEENT: Head normocephalic, atraumatic, EOMI, pupils reactive, face symmetric, moist mucous membranes NECK: Supple, full range of motion CARDIOVASCULAR: Regular rate and rhythm without murmurs, rubs or gallops. No JVD. No swelling bilateral lower extremities. RESPIRATORY: Breath sounds equal bilaterally, no wheezes rales or rhonchi. ABDOMEN: Soft, nontender. Normoactive bowel sounds all 4 quadrants. No guarding or rebound, rigidity, no mass. Nondistended. : No CVA tenderness EXTREMITIES: Normal range of motion, no clubbing or edema. Neurovascularly intact NEUROLOGICAL: Cranial nerves II through XII grossly intact. Moving all extremities SKIN: Warm, dry, no petechiae, no rashes or lesions. Initial Vital Signs Initial Vital Signs: Vital Signs Temperature 97.2 F L 08/02/21 10:15 Scores HEART Score Heart Score history: Moderately Suspicious Heart Score EKG: Normal Heart Score Age: 45-64 years old Heart Score risk factors: 1-2 risk factors Heart Score troponin: < or = to normal limit Heart Score Total: 3 Course Orders Ordered: ED Orders 08/02/21 10:19 XR chest 1V Stat EKG-12 Lead Stat 08/02/21 10:25 BNP [NT-proBNP (BNP-Adult 18+)] Stat Complete Blood Count AUTO DIFF Stat Comprehensive Metabolic Panel Stat Lipase Stat Magnesium Stat Troponin & CK Cardiac Panel Stat 08/02/21 10:30 COVID19 -Nasal swab/Pre-Proc Stat 08/02/21 12:19 Troponin I Stat Discontinued Medications Aspirin (Aspirin 81 Mg Chew Tab) 324 mg PO NOW ONE Stop: 08/02/21 10:33 Last Admin: 08/02/21 10:48 Dose: 324 mg Documented by: LILLIAN Ketorolac Tromethamine (Ketorolac 30 Mg/Ml Vial) 15 mg IV NOW ONE Stop: 08/02/21 11:59 Last Admin: 08/02/21 12:17 Dose: 15 mg Documented by: URIEL Nitroglycerin (Nitroglycerin 0.4 Mg Sl Tab) 0.4 mg SL [id number] PRN PRN Reason: Chest Pain Last Admin: 08/02/21 10:48 Dose: 0.4 mg Documented by: LILLIAN Reevaluation(s) Reevaluation #1: Patient had not change with nitro SL. Reviewed labs, EKG and CXR with plan for repeat trop/EKG. Reevaluation #2: Patient had minimal to no change with Toradol. Reviewed her repeat EKG and troponin. She feels comfortable to return home. Time: 13:38 Vital Signs Vital signs: Vital Signs - 8 hr 08/02/21 11:00 08/02/21 11:30 08/02/21 12:00 Pulse Rate 79 73 68 Respiratory Rate 23 17 23 Blood Pressure 121/68 122/74 127/69 Pulse Oximetry 95 96 94 08/02/21 12:30 08/02/21 13:00 08/02/21 13:30 Pulse Rate 68 68 69 Respiratory Rate 19 22 15 Blood Pressure 117/61 Pulse Oximetry 95 97 97 08/02/21 13:54 Pulse Rate 68 Respiratory Rate 17 Blood Pressure 114/55 L Pulse Oximetry 97 MDM - Chest Pain Lab Data Result diagrams: 08/02/21 10:25 08/02/21 10:25 Labs: Lab Results 08/02/21 08/02/21 08/02/21 Range/Units 10:25 10:25 10:25 WBC 5.8 (4.5-11.0) X10^3/uL RBC 5.02 (4.0-5.2) X10^6/uL Hgb 15.3 (12.0-16.0) g/dL Hct 44.7 (36-46) % MCV 89.0 (80-100) fL MCH 30.5 (26-34) PG MCHC 34.3 (30-36) % RDW 12.6 (11.6-14.8) % Plt Count 198 (150-400) X10^3/uL Neut % (Auto) 48.9 L (50-75) % Lymph % (Auto) 42.8 H (25-40) % Mineral % (Auto) 6.3 (3-14) % Eos % (Auto) 1.1 L (2-4) % Baso % (Auto) 0.9 (0-2) % Neut # (Auto) 2900 (4965-2522) /uL Lymph # (Auto) 2500 (9441-0877) /uL Mineral # (Auto) 400 (0-900) /uL Eos # (Auto) 100 (0-450) /uL Baso # (Auto) 100 (0-100) /uL Sodium 138 (137-145) mmol/L Potassium 4.1 (3.4-5.1) mmol/L Chloride 107 (98-107) mmol/L Carbon Dioxide 27 (22-32) mmol/L BUN 15 (7-17) mg/dL Creatinine 0.71 (0.52-1.04) mg/dL Estimated GFR > 60.0 (>60) mL/min BUN/Creatinine Ratio 21.1 (6-22) Glucose 131 H (80-110) mg/dL Calcium 9.6 (8.4-10.2) mg/dL Magnesium 2.0 (1.6-2.3) mg/dL Total Bilirubin 1.0 (0.2-1.3) mg/dL AST 39 H (14-36) IU/L ALT 46 H (<35) IU/L Alkaline Phosphatase 56 (38-126) U/L Total Creatine Kinase 89 (30-135) U/L CK-MB (CK-2) TNP CK-MB (CK-2) Rel Index TNP Troponin I < 0.012 (0.01-0.034) ng/mL NT-Pro-B Natriuret Pep 21 (<125) pg/mL Total Protein 7.9 (6.3-8.2) g/dL Albumin 4.5 (3.5-5.0) g/dL Globulin 3.4 (1.7-4.1) g/dL Albumin/Globulin Ratio 1.3 (1.0-2.8) Lipase 84 (23-300) U/L SARS-CoV-2 (PCR) (Negative) 08/02/21 08/02/21 Range/Units 10:30 12:19 WBC (4.5-11.0) X10^3/uL RBC (4.0-5.2) X10^6/uL Hgb (12.0-16.0) g/dL Hct (36-46) % MCV (80-100) fL MCH (26-34) PG MCHC (30-36) % RDW (11.6-14.8) % Plt Count (150-400) X10^3/uL Neut % (Auto) (50-75) % Lymph % (Auto) (25-40) % [place] % (Auto) (3-14) % Eos % (Auto) (2-4) % Baso % (Auto) (0-2) % Neut # (Auto) (9453-7011) /uL Lymph # (Auto) (5094-7611) /uL [place] # (Auto) (0-900) /uL Eos # (Auto) (0-450) /uL Baso # (Auto) (0-100) /uL Sodium (137-145) mmol/L Potassium (3.4-5.1) mmol/L Chloride (98-107) mmol/L Carbon Dioxide (22-32) mmol/L BUN (7-17) mg/dL Creatinine (0.52-1.04) mg/dL Estimated GFR (>60) mL/min BUN/Creatinine Ratio (6-22) Glucose (80-110) mg/dL Calcium (8.4-10.2) mg/dL Magnesium (1.6-2.3) mg/dL Total Bilirubin (0.2-1.3) mg/dL AST (14-36) IU/L ALT (<35) IU/L Alkaline Phosphatase (38-126) U/L Total Creatine Kinase (30-135) U/L CK-MB (CK-2) CK-MB (CK-2) Rel Index Troponin I < 0.012 (0.01-0.034) ng/mL NT-Pro-B Natriuret Pep (<125) pg/mL Total Protein (6.3-8.2) g/dL Albumin (3.5-5.0) g/dL Globulin (1.7-4.1) g/dL Albumin/Globulin Ratio (1.0-2.8) Lipase (23-300) U/L SARS-CoV-2 (PCR) Negative (Negative) Imaging Data Chest x-ray: Radiologist's Impression: Yuliya Shore??61??F??1960 ? Allergy/Adv: No Known Drug Allergies (More??) Close Chest X-Ray (Signed) Sridhar Sunshine - 08/02/21 Mammogram Screening (Signed) Ed Curiel - 10/24/20 Mammogram Screening (Signed) Sridhar Sunshine - 07/25/19 Abdomen Ultrasound (Signed) Kelly Mcfaddenosman - 11/08/17 Launch?[address] [address] XRay Report Signed Patient: Yuliya Shore MR#: [id number] : 1960 Acct:[id number] Age/Sex: 61 / F Date of Service: 08/02/21 Loc: ED Accession Number: [id number] ?? Procedure: XR chest 1V Ordering Provider: Angy Dover D.O. PROCEDURE:? XR CHEST 1V ? INDICATIONS:? chest pain ? TECHNIQUE:? One view of the chest was acquired.? ? COMPARISON:? None. ? FINDINGS:? ? Surgical changes and devices:? None.? ? Lungs and pleura:? Lungs are clear.? No pleural effusions or pneumothorax.? ? Mediastinum:? Mediastinal contours appear normal.? Heart size is normal.? ? Bones and chest wall:? No suspicious bony lesions.? Overlying soft tissues appear unremarkable.? ? IMPRESSION:? No acute cardiopulmonary abnormalities or focal airspace disease. ? Dictated by: Sridhar Sunshine M.D. on 08/02/2021 at 9:49 ? ? Approved by: Sridhar Sunshine M.D. on 08/02/2021 at 9:49?? ECG Data Attestation: I personally reviewed and interpreted this ECG as follows: Interpretation: Sinus rhythm rate of 69 TN 152 QRS 84 and QTC [address] elevation or depression. No acute ST changes in comparison to prior from 11/08/2017. EKG2. Sinus rhythm rate of 66 TN 174 QRS 80 QTC of 419. Patient has it been T- wave in 3 but no changes in 2 or AVF with no acute changes appreciated an EKG. MDM Narrative Medical decision making narrative: This is a 61-year-old female comes in with complaint of a band of chest tightness that started last night persisted into today that is worse with sitting. No acute ST changes appreciated troponin negative x2. Patient did rec eive nitro without any improvement, Toradol without any improvement. Her labs, imaging show a very mild elevation in her LFTs but otherwise normal. Heart score is 3. Plan for patient to follow-up with primary care. Discharge Plan Departure Patient Disposition: Home Clinical Impression: Atypical chest pain Instructions: DI for Atypical Chest Pain Activity Restrictions/Additional Instructions: Follow-up with your physician for recheck. Your labs today show a very mild elevation in your liver enzymes, recommend having this followed with your physician. Included for your lab results today. Please return for new or worsening chest pain, shortness of breath, lightheadedness or passing out, persistent vomiting, new rashes or skin changes, swelling of extremities or other new or concerning symptoms. Prescriptions: No Action minocycline 1 cap PO PRN PRN (Reason: rosacia) 0RF meloxicam 15 mg tablet 15 mg PO DAILY Qty: 10 0RF Rx Instructions: not with other NSAIDs Referrals: Sonam Ching ARNP [Primary Care Provider] -
[2021-08-02] MEDS: ASPIRIN 81 MG CHEW TAB 324 MG PO (10:48)
[2021-08-02] MEDS: NITROGLYCERIN 0.4 MG SL TAB SL (10:48)
[2021-08-02 10:57] LABS: Add Manual Diff / Slide Review NO; Basophils Absolute Auto 100 /uL (0-100); Basophils Percent Auto 0.9 % (0-2); Eosinophils Absolute Auto 100 /uL (0-450); Eosinophils Percent Auto 1.1 % (2-4); Hematocrit 44.7 % (36-46); Hemoglobin 15.3 g/dL (12.0-16.0); Lymphocytes Absolute Auto 2500 /uL (1100-4500); Lymphocytes Percent Auto 42.8 % (25-40); Mean Corpuscular HGB Conc 34.3 % (30-36); Mean Corpuscular Hemoglobin 30.5 PG (26-34); Monocytes Absolute Auto 400 /uL (0-900); Monocytes Percent Auto 6.3 % (3-14); Neutrophils Absolute Auto 2900 /uL (1500-7000); Neutrophils Percent Auto 48.9 % (50-75); Platelet Count 198 X10^3/uL (150-400); Red Blood Cell Count 5.02 X10^6/uL (4.0-5.2); Red Cell Distribution Width 12.6 % (11.6-14.8); White Blood Cell Count 5.8 X10^3/uL (4.5-11.0)
[2021-08-02 10:59] LABS: Alanine Aminotransferase 46 IU/L (<35); Albumin 4.5 g/dL (3.5-5.0); Albumin Globulin Ratio 1.3 (1.0-2.8); Alkaline Phosphatase 56 U/L (38-126); Aspartate Aminotransferase 39 IU/L (14-36); BUN Creatinine Ratio 21.1 (6-22); Blood Urea Nitrogen 15 mg/dL (7-17); Calcium 9.6 mg/dL (8.4-10.2); Carbon Dioxide 27 mmol/L (22-32); Chloride 107 mmol/L (98-107); Creatine Kinase 89 U/L (30-135); Estimated Glomerular Filt Rate > 60.0 mL/min (>60); Globulin 3.4 g/dL (1.7-4.1); Glucose 131 mg/dL (80-110); HEMOLYSIS 18 (0-50); Lipase 84 U/L (23-300); Potassium 4.1 mmol/L (3.4-5.1); Sodium 138 mmol/L (137-145); Total Protein 7.9 g/dL (6.3-8.2)
[2021-08-02 11:08] LABS: NT-proBNP (BNP-Adult 18+) 21 pg/mL (<125)
[2021-08-02 11:11] LABS: Troponin I < 0.012 ng/mL (0.01-0.034)
[2021-08-02 11:13] LABS: COVID19 -Nasal RAPID Negative (Negative)
--- NOTE | 2021-08-02 11:27 | PC.NURSE ---
Pt reports pain anterior pain across bra line as if a bra were too tight, and pain in upper back. Radial and dorsalis pedis pulses equal bilaterally, normal strength. No lower extremity edema noted.
[2021-08-02] MEDS: KETOROLAC 30 MG/ML VIAL 15 MG IV (12:17)
[2021-08-02 12:51] LABS: Troponin I < 0.012 ng/mL (0.01-0.034)
== END 2021-08-02 13:58 | disposition home or self-care (01) ==
PROVIDERS: Emergency Provider Emergency Medicine; PCP Nurse Practitioner Family
DX: R07.89 Other chest pain (principal); Z20.822 Contact with and (suspected) exposure to COVID-19
CPT/HCPCS: 36415; 71045; 80053; 82550; 83690; 83735; 83880; 84484; 85025; 87635; 93005; 96374; 99284; C9803; J1885

== ENCOUNTER 2022-04-08 14:46 | Emergency (ER) | payer OTHER, SELFPAY ==
[2022-04-08] VITALS (11 sets, daily range): BP systolic 149–192; BP diastolic 80–104; PULSE 95–106; RESP 18–19; TEMP 36.8; O2SAT 96–98; BMI 29.0
--- NOTE | 2022-04-08 14:57 | DI.CT.S_ITS ---
PROCEDURE: CT HEAD/BRAIN WO CON INDICATIONS: blurred vision, headache TECHNIQUE: Noncontrast 4.5 mm thick angled axial sections acquired from the foramen magnum to the vertex, with coronal and sagittal reformats. For radiation dose reduction, the following was used: automated exposure control, adjustment of mA and/or kV according to patient size. COMPARISON: None. FINDINGS: Image quality: Excellent. CSF spaces: Basal cisterns are patent. No extra-axial fluid collections. The ventricles are symmetric in size and shape. Brain: No intracranial bleeds or masses. There is cerebral volume loss for age, with resultant ventricular and sulcal prominence. There are periventricular and deep white matter chronic small vessel ischemic changes. There is intracranial internal carotid artery atherosclerosis. Skull and face: Calvarium and visualized facial bones appear intact, without suspicious lesions. Sinuses: Visualized sinuses and mastoids are clear. IMPRESSION: No evidence of acute intracranial process. Dictated by: Josué Ortiz M.D. on 04/08/2022 at 15:21 Approved by: Josué Ortiz M.D. on 04/08/2022 at 15:22
--- NOTE | 2022-04-08 15:27 | ED.NEUROSD ---
HPI - Neuro Symptoms/Deficit General Chief Complaint: Neuro Symptoms/Deficit Stated Complaint: Blurred vision episodes, t, t-1, t-7 Time Seen by Provider: 04/08/22 14:50 Source: patient Mode of arrival: Ambulatory History of Present Illness HPI Narrative: 61-year-old female nonsmoker with history of hyperlipidemia presents with her in the chief complaint of now 3 episodes of bilateral floaters followed by blurred vision over the past week. She noticed it initially about 7 days ago, again yesterday and again 30-45 minutes prior to her arrival. In each circumstance she has some increased tinnitus, mild bilateral head pressure followed by floaters and then blurring of her vision. She denies any visual field cut or double vision. She denies any persistence of symptoms beyond 30 minutes or so. She denies associated symptoms such as dizziness or lightheadedness. She denies any chest pain, palpitations or shortness of breath. She denies any difficulty ambulating or ataxia. She has no extremity numbness, tingling or weakness. She denies any medication or dietary change. She denies any recent trauma or head injury. She has no neck pain, fever nor use of blood thinners On Anticoagulants: No Related Data Home Medications Medication Instructions Recorded Confirmed atorvastatin 10 mg tablet 10 mg PO DAILY 04/08/22 04/08/22 Previous Rx's Medication Instructions Recorded amlodipine 10 mg tablet 10 mg PO DAILY #30 tabs 04/08/22 Allergies Allergy/AdvReac Type Severity Reaction Status Date / Time No Known Drug Allergies Allergy Verified 04/08/22 15:20 Review of Systems Review of Systems Narrative: GENERAL: See HPI HEENT: See HPI RESPIRATORY: Denies dyspnea, cough, wheezing, hemoptysis, sputum. CARDIOVASCULAR: Denies chest pain, palpitations, orthopnea, edema, GASTROINTESTINAL: Denies nausea, vomiting, abdominal pain, diarrhea, constipation, melena. : Denies dysuria, frequency, incontinence, hematuria, urinary retention. MUSCULOSKELETAL: denies weakness, joint pain, or bony pain SKIN: Denies rash, skin lesions, or other NEUROLOGIC: See HPI PSYCHIATRIC: No concerning psychosocial issues. 12 point review of systems is negative except for those stated above Hematologic/Lymphatic On Anticoagulants: No Patient History Medical History Heartburn Hyperlipidemia Nephrolithiasis Rosacea Surgical History History of History of laparoscopy Social History Smoking Status: Never smoker Smoking Status: Never smoker alcohol intake frequency: a few times a week Alcohol type: wine Substance Use Type: does not use Exam Narrative Exam Narrative: GENERAL: [61] year old patient appears stated age. Well-developed patient, in mild distress. HEAD: Atraumatic. Normocephalic. EYES: Pupils equal round and reactive. Extraocular motions intact. No scleral icterus. No injection or drainage. ENT: Nose without bleeding, purulent drainage. Throat without erythema, tonsillar hypertrophy or exudate. Airway patent. NECK: Trachea midline. Non tender CARDIOVASCULAR: Regular rate and rhythm without murmurs, gallops, or rubs. RESPIRATORY: Clear to auscultation. Breath sounds equal bilaterally. No wheezes, rales, or rhonchi. GASTROINTESTINAL: Abdomen soft, non-tender, nondistended. EXTREMITIES: No edema or joint tenderness. BACK: Nontender without deformity or crepitance. No flank tenderness. NEURO: AOx3. SKIN: No rash or erythema of visible areas NIH Stroke Scale 1a. LOC: Patient is alert and keenly responsive (0) 1b. LOC Questions: Patient answers both LOC questions accurately (0) 1c. LOC Commands: Patient performs both tasks correctly (0) 2. Best Gaze: Normal (0) 3. Visual: No visual loss (0) 4. Facial palsy: Normal symmetrical movements (0) 5. Motor arm: No drift (0) 6. Motor leg: No drift (0) 7. Limb ataxia: Absent (0) 8. Sensory: Normal (0) 9. Best language: No aphasia; normal (0) 10. Dysarthria: Normal (0) 11. Extinction and inattention: No abnormality (0) NIHSS: 0 Initial Vital Signs Initial Vital Signs: Vital Signs Temperature 98.3 F 04/08/22 14:50 Pulse Rate 95 H 04/08/22 14:50 Respiratory Rate 18 04/08/22 14:50 Blood Pressure 192/100 H 04/08/22 14:50 Pulse Oximetry 97 04/08/22 14:50 Oxygen Delivery Method 04/08/22 14:50 Course Orders Ordered: ED Orders 04/08/22 14:57 CT head/brain wo con Stat 04/08/22 15:02 EKG-12 Lead Stat 04/08/22 15:20 C-Reactive Protein Quant Stat Complete Blood Count AUTO DIFF Stat Comprehensive Metabolic Panel Stat Troponin & CK Cardiac Panel Stat 04/08/22 15:26 Urinalysis and Microscopic Stat 04/08/22 15:29 MR head/brain wo con Stat 04/08/22 15:42 COVID19 -Nasal RAPID/Pre-Proc Stat Vital Signs Vital signs: Vital Signs - 8 hr 04/08/22 14:50 Temperature 98.3 F Pulse Rate 95 H Respiratory Rate 18 Blood Pressure 192/100 H Pulse Oximetry 97 Oxygen Delivery Method Room Air MDM - Neuro Symptoms/Deficit Lab Data Result diagrams: 04/08/22 15:20 04/08/22 15:20 Labs: Lab Results 04/08/22 04/08/22 04/08/22 Range/Units 15:20 15:20 15:26 WBC 6.6 (4.5-11.0) X10^3/uL RBC 4.80 (4.0-5.2) X10^6/uL Hgb 14.9 (12.0-16.0) g/dL Hct 43.0 (36-46) % MCV 89.6 (80-100) fL MCH 31.1 (26-34) PG MCHC 34.7 (30-36) % RDW 12.8 (11.6-14.8) % Plt Count 213 (150-400) X10^3/uL Neut % (Auto) 50.4 (50-75) % Lymph % (Auto) 43.1 H (25-40) % [place] % (Auto) 4.4 (3-14) % Eos % (Auto) 1.2 L (2-4) % Baso % (Auto) 0.9 (0-2) % Neut # (Auto) 3300 (5969-4139) /uL Lymph # (Auto) 2800 (2518-9806) /uL [place] # (Auto) 300 (0-900) /uL Eos # (Auto) 100 (0-450) /uL Baso # (Auto) 100 (0-100) /uL Sodium 138 (137-145) mmol/L Potassium 3.9 (3.4-5.1) mmol/L Chloride 102 (98-107) mmol/L Carbon Dioxide 28 (22-32) mmol/L BUN 18 H (7-17) mg/dL Creatinine 0.73 (0.52-1.04) mg/dL Estimated GFR > 60 (>60) mL/min BUN/Creatinine Ratio 24.7 H (6-22) Glucose 161 H (80-110) mg/dL Calcium 9.1 (8.4-10.2) mg/dL Total Bilirubin 1.2 (0.2-1.3) mg/dL AST 30 (14-36) IU/L ALT 37 H (<35) IU/L Alkaline Phosphatase 66 (38-126) U/L Total Creatine Kinase 76 (30-135) U/L CK-MB (CK-2) TNP CK-MB (CK-2) Rel Index TNP Troponin I < 0.012 (0.01-0.034) ng/mL C-Reactive Protein < 0.5 (<1.0) mg/dL Total Protein 7.7 (6.3-8.2) g/dL Albumin 4.4 (3.5-5.0) g/dL Globulin 3.3 (1.7-4.1) g/dL Albumin/Globulin Ratio 1.3 (1.0-2.8) Urine Color Yellow Urine Appearance Clear Urine pH 5.5 (4.5-8.0) Ur Specific [place] 1.015 (1.000-1.035) Urine Protein Negative (Negative) Urine Glucose (UA) Negative (Negative) g/dL Urine Ketones Negative (NEGATIVE) Urine Occult Blood 1+ H (Negative) Urine Nitrate Negative (Negative) Urine Bilirubin Negative (NEGATIVE) Urine Urobilinogen 0.2 (0.2) E.U./dL Ur Leukocyte Esterase Negative (NEGATIVE) Urine RBC 0-1/hpf (0-5/HPF) Urine WBC None seen (0-5/HPF) Amorphous Sediment 1+ Urine Bacteria None seen (None) Ur Culture Indicated? Cult not indicated SARS-CoV-2 (PCR) (Negative) 04/08/22 Range/Units 15:42 WBC (4.5-11.0) X10^3/uL RBC (4.0-5.2) X10^6/uL Hgb (12.0-16.0) g/dL Hct (36-46) % MCV (80-100) fL MCH (26-34) PG MCHC (30-36) % RDW (11.6-14.8) % Plt Count (150-400) X10^3/uL Neut % (Auto) (50-75) % Lymph % (Auto) (25-40) % [place] % (Auto) (3-14) % Eos % (Auto) (2-4) % Baso % (Auto) (0-2) % Neut # (Auto) (4762-0052) /uL Lymph # (Auto) (2274-1358) /uL [place] # (Auto) (0-900) /uL Eos # (Auto) (0-450) /uL Baso # (Auto) (0-100) /uL Sodium (137-145) mmol/L Potassium (3.4-5.1) mmol/L Chloride (98-107) mmol/L Carbon Dioxide (22-32) mmol/L BUN (7-17) mg/dL Creatinine (0.52-1.04) mg/dL Estimated GFR (>60) mL/min BUN/Creatinine Ratio (6-22) Glucose (80-110) mg/dL Calcium (8.4-10.2) mg/dL Total Bilirubin (0.2-1.3) mg/dL AST (14-36) IU/L ALT (<35) IU/L Alkaline Phosphatase (38-126) U/L Total Creatine Kinase (30-135) U/L CK-MB (CK-2) CK-MB (CK-2) Rel Index Troponin I (0.01-0.034) ng/mL C-Reactive Protein (<1.0) mg/dL Total Protein (6.3-8.2) g/dL Albumin (3.5-5.0) g/dL Globulin (1.7-4.1) g/dL Albumin/Globulin Ratio (1.0-2.8) Urine Color Urine Appearance Urine pH (4.5-8.0) Ur Specific [place] (1.000-1.035) Urine Protein (Negative) Urine Glucose (UA) (Negative) g/dL Urine Ketones (NEGATIVE) Urine Occult Blood (Negative) Urine Nitrate (Negative) Urine Bilirubin (NEGATIVE) Urine Urobilinogen (0.2) E.U./dL Ur Leukocyte Esterase (NEGATIVE) Urine RBC (0-5/HPF) Urine WBC (0-5/HPF) Amorphous Sediment Urine Bacteria (None) Ur Culture Indicated? SARS-CoV-2 (PCR) Negative (Negative) Imaging Data CT scan - head: Radiologist's Impression: [address] [address] [address] Scan Report Signed Patient: Yuliya Shore MR#: [id number] : 1960 Acct:[id number] Age/Sex: 61 / F Date of Service: 04/08/22 Loc: ED Accession Number: [id number] ?? Procedure: CT head/brain wo con Ordering Provider: Ralph Marcum D.O. PROCEDURE:? CT HEAD/BRAIN WO CON ? INDICATIONS:? blurred vision, headache ? TECHNIQUE:? Noncontrast 4.5 mm thick angled axial sections acquired from the foramen magnum to the vertex, with coronal and sagittal reformats.? For radiation dose reduction, the following was used:? automated exposure control, adjustment of mA and/or kV according to patient size.? ? COMPARISON:? None. ? FINDINGS:? Image quality:? Excellent.? ? CSF spaces:? Basal cisterns are patent.? No extra-axial fluid collections.? The ventricles are symmetric in size and shape.? ? Brain:? No intracranial bleeds or masses.? There is cerebral volume loss for age, with resultant ventricular and sulcal prominence.? There are periventricular and deep white matter chronic small vessel ischemic changes.? There is intracranial internal carotid artery atherosclerosis.? ? Skull and face:? Calvarium and visualized facial bones appear intact, without suspicious lesions.? ? Sinuses:? Visualized sinuses and mastoids are clear.? ? IMPRESSION:? No evidence of acute intracranial process. ? ? Dictated by: Josué Ortiz M.D. on 04/08/2022 at 15:21 ? ? Discharge Plan Departure Patient Disposition: Home Clinical Impression: Hypertension Instructions: High Blood Pressure Activity Restrictions/Additional Instructions: *You have been diagnosed with [high blood pressure and episodes of blurred vision. As we discussed your history and physical exam are very reassuring and there is no evidence of lab abnormality, stroke, or other diagnosis that would require specific or immediate intervention] *What to do: *Please continue to take your regular medications as directed. [ x] New medication prescriptions sent to your pharmacy: [ [facility]] [ ] New medication written as a paper prescription [ ] No new medications given *Please follow up with your primary care provider in 2-3 days, call for an appointment. Let them know you were seen in the Emergency Department and that we ask that you be seen in follow up. We will electronically transmit a record of today's note if your PCP is in our system *Return to Emergency Department if you should have any new, worsening or concerning symptoms, such as [fever greater than 101 F, shaking chills, worsening pain, persistent vomiting or other bothersome symptoms] Prescriptions: New amlodipine 10 mg tablet 10 mg PO DAILY Qty: 30 0RF No Action atorvastatin 10 mg tablet 10 mg PO DAILY Referrals: Sonam Ching ARNP [Primary Care Provider] - Visit Report Forms: Patient Portal/API
[2022-04-08 15:28] LABS: Add Manual Diff / Slide Review NO; Basophils Absolute Auto 100 /uL (0-100); Basophils Percent Auto 0.9 % (0-2); Eosinophils Absolute Auto 100 /uL (0-450); Eosinophils Percent Auto 1.2 % (2-4); Hemoglobin 14.9 g/dL (12.0-16.0); Lymphocytes Absolute Auto 2800 /uL (1100-4500); Lymphocytes Percent Auto 43.1 % (25-40); Mean Corpuscular HGB Conc 34.7 % (30-36); Mean Corpuscular Hemoglobin 31.1 PG (26-34); Mean Corpuscular Volume 89.6 fL (80-100); Monocytes Absolute Auto 300 /uL (0-900); Monocytes Percent Auto 4.4 % (3-14); Neutrophils Absolute Auto 3300 /uL (1500-7000); Neutrophils Percent Auto 50.4 % (50-75); Platelet Count 213 X10^3/uL (150-400); Red Cell Distribution Width 12.8 % (11.6-14.8); White Blood Cell Count 6.6 X10^3/uL (4.5-11.0)
--- NOTE | 2022-04-08 15:29 | DI.MRI.S_ITS ---
PROCEDURE: MR HEAD/BRAIN WO CON INDICATIONS: blurred vision TECHNIQUE: Noncontrast axial T1 spin echo, axial T2 fast spin echo, sagittal and axial FLAIR, coronal T2 fast spin echo, axial gradient echo, axial diffusion and ADC through the brain. COMPARISON: None. FINDINGS: Image quality: Excellent. CSF Spaces: Basal cisterns are patent. No extra-axial fluid collections. Ventricles are normal in size and shape. Brain: No intracranial masses or hemorrhage. [place]/white matter interface is normal. Brainstem appears normal. There is mild diffuse cerebral volume loss. Diffusion-weighted images demonstrate no acute ischemic insult. No chronic ischemic insults. Normal intravascular flow voids are present. Skull and face: Calvarium has normal marrow signal. Orbits appear normal. Sinuses: Sinuses and mastoids are clear. IMPRESSION: 1. No acute process. 2. No recent infarct. 3. Mild diffuse age-appropriate cerebral volume loss. Dictated by: Tanner Gupta M.D. on 04/08/2022 at 16:33 Transcribed by: MIKE on 04/08/2022 at 16:33 Approved by: Tanner Gupta M.D. on 04/08/2022 at 16:47
[2022-04-08 15:44] LABS: Appearance Urine UA CLEAR; Bilirubin Urine UA NEGATIVE (NEGATIVE); Color Urine UA YELLOW; Glucose Urine UA NEGATIVE (Negative); Ketones Urine UA NEGATIVE (NEGATIVE); Leukocyte Esterase Urine UA NEGATIVE (NEGATIVE); Nitrite Urine UA NEGATIVE (Negative); Occult Blood Urine UA 1+ (Negative); Protein Urine UA NEGATIVE (Negative); Specific Gravity Urine UA 1.015 (1.000-1.035); Urobilinogen Urine UA 0.2 E.U./dL (0.2); pH Urine UA 5.5 (4.5-8.0)
[2022-04-08 15:55] LABS: Amorphous Sediment Urine 1+; Bacteria Urine None Seen; Culture Indicated Urine Cult Not Indicated; RBC Urine 0-1/HPF (0-5/HPF); WBC Urine None Seen (0-5/HPF)
[2022-04-08 15:59] LABS: COVID19 -Nasal RAPID Negative (Negative)
[2022-04-08 16:14] LABS: Alanine Aminotransferase 37 IU/L (<35); Albumin 4.4 g/dL (3.5-5.0); Albumin Globulin Ratio 1.3 (1.0-2.8); Alkaline Phosphatase 66 U/L (38-126); Aspartate Aminotransferase 30 IU/L (14-36); BUN Creatinine Ratio 24.7 (6-22); Bilirubin Total 1.2 mg/dL (0.2-1.3); Blood Urea Nitrogen 18 mg/dL (7-17); C-Reactive Protein Quant < 0.5 mg/dL (<1.0); Calcium 9.1 mg/dL (8.4-10.2); Carbon Dioxide 28 mmol/L (22-32); Chloride 102 mmol/L (98-107); Creatine Kinase 76 U/L (30-135); Estimated Glomerular Filt Rate > 60 mL/min (>60); Globulin 3.3 g/dL (1.7-4.1); Glucose 161 mg/dL (80-110); HEMOLYSIS 20 (0-50); Potassium 3.9 mmol/L (3.4-5.1); Sodium 138 mmol/L (137-145); Total Protein 7.7 g/dL (6.3-8.2)
[2022-04-08 16:25] LABS: Troponin I < 0.012 ng/mL (0.01-0.034)
== END 2022-04-08 18:09 | disposition home or self-care (01) ==
PROVIDERS: Emergency Provider Emergency Medicine; PCP Nurse Practitioner Family
DX: I10 Essential (primary) hypertension (principal); H53.8 Other visual disturbances; R51.9 Headache, unspecified; Z20.822 Contact with and (suspected) exposure to COVID-19
CPT/HCPCS: 36415; 70450; 70551; 80053; 81001; 82550; 84484; 85025; 86140; 87635; 93005; 99284; C9803

== ENCOUNTER 2022-04-19 13:02 | Emergency (ER) | payer OTHER, SELFPAY ==
[2022-04-19 13:07] VITALS: BP 131/76; PULSE 88; RESP 14; TEMP 36.1; O2SAT 99
[2022-04-19 15:00] VITALS: BP 130/70; PULSE 68; RESP 17; O2SAT 98
[2022-04-19 16:30] VITALS: BP 120/70; PULSE 65; RESP 18; O2SAT 98
--- NOTE | 2022-04-19 16:41 | ED_ITS ---
HPI - Neuro Symptoms/Deficit <Dorinda Baez PA-C - Last Filed: 04/19/22 16:49> General Chief Complaint: Neuro Symptoms/Deficit Stated Complaint: blurry vision in both eyes/er visit 04/08 Time Seen by Provider: 04/19/22 13:21 Source: patient Mode of arrival: Ambulatory History of Present Illness HPI Narrative: 61-year-old female with past medical history hypercholesterolemia presents to the ED with floaters and blurry vision in bilateral eyes. Patient states that she had an episode this morning which started with floaters in bilateral eyes, followed by blurry vision, which then resolved in 20 minutes. Patient says she was left with a dull headache afterwards. Headache resolved soon thereafter as well. Patient endorses that she has had several episodes of this over the last 3 weeks. Patient was seen in the ED after 1 of these episodes on 04/08/2022, CT head and CT MRI were without acute findings. Patient was also seen by her PCP. Patient has a appointment with her documentation liaison later this week. Patient denies fever, chills, nausea, vomiting, chest pain, shortness of breath, abdominal pain, lightheadedness, syncope. Patient endorses some intermittent dizziness. Patient also has baseline tinnitus. On Anticoagulants: No Related Data Home Medications Medication Instructions Recorded Confirmed atorvastatin 10 mg tablet 10 mg PO DAILY 04/08/22 04/08/22 Allergies Allergy/AdvReac Type Severity Reaction Status Date / Time No Known Drug Allergies Allergy Verified 04/19/22 13:12 Review of Systems <Dorinda Baez PA-C - Last Filed: 04/19/22 16:49> Review of Systems ROS Unobtainable: All systems reviewed & are unremarkable except as noted in HPI and below Constitutional Constitutional: Denies chills, Denies fatigue, Denies fever(s), Denies frequent falls, Denies lethargy and Denies weakness Eyes Eyes: Reports blurry vision, Denies change in vision, Denies eye discharge, Reports floaters, Denies irritation, Denies loss of vision and Reports photophobia ENT Ears, Nose, Mouth, and Throat: Denies change in voice, Reports dizziness, Denies neck pain, Denies sore throat and Denies throat swelling Cardiovascular Cardiovascular: Denies chest pain, Denies irregular heart rhythm, Denies lightheadedness, Denies palpitations, Denies dyspnea, Denies dyspnea on exertion and Denies orthopnea Respiratory Respiratory: Denies cough, Denies dyspnea, Denies dyspnea on exertion and Denies wheezing Gastrointestinal Gastrointestinal: Denies abdominal pain, Denies change in bowel habits, Denies diarrhea, Denies nausea and Denies vomiting Genitourinary Genitourinary: Denies hematuria, Denies flank pain, Denies urinary incontinence and Denies urinary urgency Musculoskeletal Musculoskeletal: Denies back pain, Denies muscle weakness, Denies neck pain, Denies numbness and Denies tingling Integumentary/Breasts Skin/Breast: Denies pruritus, Denies erythema, Denies rash and Denies wounds Neurologic Neurologic: Denies behavioral changes, Denies confusion, Reports dizziness, Denies frequent falls, Denies loss of vision, Denies numbness, Denies tingling and Denies weakness Psychiatric Psychiatric: Denies anxiety, Denies behavioral changes, Denies confusion, Denies depression, Denies homicidal ideation and Denies suicidal ideation Endocrine Endocrine: Denies fatigue, Denies flushing and Denies palpitations Hematologic/Lymphatic Hematologic/Lymphatic: Denies easy bruising On Anticoagulants: No Allergic/Immunologic Allergic/Immunologic: Denies urticaria, Denies throat swelling and Denies wheezing Patient History <Dorinda Baez PA-C - Last Filed: 04/19/22 16:49> Medical History Heartburn Hyperlipidemia Nephrolithiasis Rosacea Surgical History History of History of laparoscopy Social History Smoking Status: Never smoker Smoking Status: Never smoker alcohol intake frequency: a few times a week Alcohol type: wine Substance Use Type: does not use Exam <Dorinda Baez PA-C - Last Filed: 04/19/22 16:49> Narrative Exam Narrative: Const General:?cooperative, healthy appearing and comfortable [facility] Head:?normal to inspection Ears:?hearing grossly normal bilaterally Nose:?external nose normal Face and sinus:?normal facial exam and sinuses nontender Mouth:?oral mucosae normal Throat:?posterior oropharynx normal Eyes General:?appearance normal, both eyes and all related structures Neck Neck:?normal visual inspection and no lymphadenopathy noted Resp Effort & Inspection:?normal respiratory effort Auscultation:?clear to auscultation bilaterally Cardio Rate:?regular rate Rhythm:?regular rhythm Neuro General:?patient alert, patient awake and patient oriented x3; gait is normal; PERRLA; CN 1 through 12 bilaterally intact; strength and sensation intact; range of motion intact; negative pronator drift; negative [id number] Initial Vital Signs Initial Vital Signs: Vital Signs Temperature 97.0 F L 04/19/22 13:07 Pulse Rate 88 04/19/22 13:07 Respiratory Rate 14 04/19/22 13:07 Blood Pressure 131/76 04/19/22 13:07 Pulse Oximetry 99 04/19/22 13:07 Oxygen Delivery Method 04/19/22 13:07 <Angy Dover DO - Last Filed: 04/19/22 19:13> Initial Vital Signs Initial Vital Signs: Vital Signs Temperature 97.0 F L 04/19/22 13:07 Pulse Rate 88 04/19/22 13:07 Respiratory Rate 14 04/19/22 13:07 Blood Pressure 131/76 04/19/22 13:07 Pulse Oximetry 99 04/19/22 13:07 Oxygen Delivery Method 04/19/22 13:07 Course <Dorinda Baez PA-C - Last Filed: 04/19/22 16:49> Vital Signs Vital signs: Vital Signs - 8 hr 04/19/22 13:07 04/19/22 16:30 04/19/22 15:00 Temperature 97.0 F L Pulse Rate 88 65 68 Respiratory Rate 14 18 17 Blood Pressure 131/76 120/70 130/70 Pulse Oximetry 99 98 98 Oxygen Delivery Method Room Air <Angy Dover DO - Last Filed: 04/19/22 19:13> Vital Signs Vital signs: Vital Signs - 8 hr 04/19/22 13:07 04/19/22 16:30 04/19/22 15:00 Temperature 97.0 F L Pulse Rate 88 65 68 Respiratory Rate 14 18 17 Blood Pressure 131/76 120/70 130/70 Pulse Oximetry 99 98 98 Oxygen Delivery Method Room Air MDM - Neuro Symptoms/Deficit <Dorinda Baez PA-C - Last Filed: 04/19/22 16:49> MDM Narrative Medical decision making narrative: 61-year-old female with past medical history hypercholesterolemia presents to the ED with floaters and blurry vision in bilateral eyes. Concern for ocular migraine versus retinal detachment versus vertigo versus other. Bedside ultrasound was reassuring, unlikely retinal detachment. In the ED patient has no symptoms. Went for or Tylenol when she has symptoms. Patient agrees to keep her appointment with her documentation liaison. ED return precautions were discussed with patient. Patient verbalized understanding. Discharge Plan Departure Patient Disposition: Home Clinical Impression: Floaters Instructions: DI for Eye Floaters Activity Restrictions/Additional Instructions: You were evaluated in the ED today for blurred vision, floaters, headache. Your physical exam was reassuring. It is possible that your symptoms are due to a migraine or vertigo. You have an appointment with the documentation liaison later this week, which you should keep for further evaluation. Return to the ED if your symptoms worsen, you lose vision, you were persistently vomiting. Prescriptions: No Action atorvastatin 10 mg tablet 10 mg PO DAILY Referrals: Sonam Ching ARNP [Primary Care Provider] - Visit Report Forms: Patient Portal/API <Angy Dover DO - Last Filed: 04/19/22 19:13> Cosign ED Attending Coskareemature Attestation: I was immediately available in the department for consultation. Documentation has been reviewed.
== END 2022-04-19 16:44 | disposition home or self-care (01) ==
PROVIDERS: Emergency Provider Student in an Organized Health Care Education/Training Program; PCP Nurse Practitioner Family
DX: H53.8 Other visual disturbances (principal); R51.9 Headache, unspecified
CPT/HCPCS: 99281

== ENCOUNTER → 2022-06-09 09:29 | Outpatient (CLI) | payer OTHER, SELFPAY ==
[2022-06-17 14:37] LABS: Metanephrine,Plasma 15.6 pg/mL (0.0-88.0)
== END ==
PROVIDERS: PCP Nurse Practitioner Family; Referring Provider Nurse Practitioner Family; Visit Provider Nurse Practitioner Family
DX: R03.0 Elevated blood-pressure reading, without diagnosis of hypertension (principal); R42 Dizziness and giddiness
CPT/HCPCS: 36415; 82088; 83835

== ENCOUNTER → 2022-08-04 06:48 | Outpatient (CLI) | payer OTHER, SELFPAY ==
--- NOTE | 2022-08-04 | DI.ECHO.S_ITS ---
[facility] [address] [place]. [address] [place] +---------+ Hospital +---------+ : : [id number] : : : : [place] : : : : [id number] : : : : Phone: [phone]+ Echocardiogram Report + + :Name: GONZALES HODGES Study Date: 08/04/2022 Height: 69 in : :[facility] ReadingLocation: Weight: 193 lb : : Gender: Female BSA: 2.0 m2 : :: 1960 Age: 62 yrs BP: 114/73 mmHg: :Reason For Study: DIZZINESS, HX MITRAL VALVE PROLAPSE : :Ordering Physician: SEAN, : :EMELI BORRERO Performed By: Tete Snyder : :Referring: EMELI ESTRADA : + + Interpretation Summary The left ventricle is normal in size and wall thickness. The ejection fraction is estimated to be 65-70%. The right ventricle is normal in size and function. No significant valvular pathology seen. The IVC is of normal diameter and collapses greater than 50% with a sniff. This suggests a low right atrial pressure of 3 mm Hg. Procedure: A two-dimensional transthoracic echocardiogram with color flow and Doppler was performed. The study quality was technically adequate. There is no prior echocardiogram noted for this patient. The patient was in sinus rhythm with heart rates between 71-85 bpm during the exam. Left Ventricle: The left ventricle is normal in size and wall thickness. There is no thrombus. A false chord is noted (normal variant). The ejection fraction is estimated to be 65-70%. There are no focal wall motion abnormalities. MV E/A: 0.80 Med Peak E' Chinedu: 3.7 cm/sec E/E' med: 15.4. Right Ventricle: The right ventricle is normal in size and function. Atria: The left atrial size is normal. Right atrial size is normal. There is no Doppler evidence for an interatrial shunt. Mitral Valve: There is mild mitral annular calcification. The mitral valve leaflets appear borderline thickened, but open well. There is a flat closure plane of the the mitral valve leaflets. There is trace mitral regurgitation. Aortic Valve: The aortic valve is trileaflet. The aortic valve opens well. There is no aortic valve stenosis. No aortic regurgitation is present. Tricuspid Valve: The tricuspid valve is normal in structure and function. There is trace tricuspid regurgitation. Pulmonary artery pressures cannot be estimated because of the lack of a measurable TR jet velocity. Pulmonic Valve: The pulmonic valve is not well visualized. There is trace pulmonic regurgitation. Great Vessels: The aortic root is normal size. The dimensions of the ascending aorta are normal. The IVC is of normal diameter and collapses greater than 50% with a sniff. This suggests a low right atrial pressure of 3 mm Hg. Pericardium/ Pleura There is no pericardial effusion. There is no pleural effusion. MMode/2D Measurements & Calculations LVIDd: 3.8 cm LVOT diam: 2.1 cm LVIDs: 2.3 cm Ao root diam: 3.1 cm FS: 38.3 % asc Aorta Diam: 2.7 cm IVSd: 0.97 cm Ao Arch Diam (Prox Trans): 3.2 cm LVPWd: 1.0 cm LV adams. diameter/BSA (cm/m^2): 1.9 LV sys. diameter/BSA (cm/m^2): 1.2 LA A2 area: 18.1 cm2 RA long axis: 4.6 cm LA A4 area: 19.0 cm2 RA area: 14.5 cm2 LA length (vol): 5.1 cm RA vol: 38.4 ml LA vol: 56.6 ml RA : 18.9 ml/m2 LA vol index: 27.8 ml/m2 IVC diam: 1.2 cm RVD1 (basal): 3.7 cm RVD2 (mid): 3.2 cm TAPSE: 2.0 cm Doppler Measurements & Calculations Ao V2 max: 110.8 cm/sec LVOT Max Chinedu: 93.7 cm/sec Ao V2 mean: 79.1 cm/sec LV V1 max P.5 mmHg Ao max P.9 mmHg LV V1 VTI: 19.5 cm Ao mean P.8 mmHg MICHAELA(I,D): 3.0 cm2 Ao V2 VTI: 21.9 cm MICHAELA(V,D): 2.9 cm2 sev ratio: 0.89 MICHAELA indexed to BSA (cm^2/m^2): 1.5 MV E max chinedu: 56.5 cm/sec PA V2 max: 82.8 cm/sec MV A max chinedu: 70.9 cm/sec PA V2 mean: 56.3 cm/sec MV E/A: 0.80 PA mean P.4 mmHg Med Peak E' Chinedu: 3.7 cm/sec PA pr(Accel): 31.0 mmHg E/E' med: 15.4 Lat Peak E' Chinedu: 7.6 cm/sec E/E' lat: 7.4 E/e' average: 11.4 MV dec time: 0.17 sec SV(LVOT): 66.2 ml Reading Physician:05:08 PM
--- NOTE | 2022-08-04 | DI.US.S_ITS ---
PROCEDURE: US CAROTID DOPPLER BI INDICATIONS: Vision changes TECHNIQUE: Color and pulse Doppler interrogation was performed of both carotid systems, with image documentation and velocity measurements. COMPARISON: [facility], CT, CT HEAD/BRAIN WO CON, 04/08/2022, 14:59. [facility], MR, MR HEAD/BRAIN WO CON, 04/08/2022, 15:42. FINDINGS: Stenosis calculations are based on SRU (Society of Radiologists in Ultrasound) criteria. Right side: Brachial blood pressure: 121/74 mm Hg. Common carotid artery peak systolic velocity: 87.9 cm/sec. Internal carotid artery peak systolic velocity: 81.8 cm/sec. Internal carotid artery end diastolic velocity: 36.5 cm/sec. External carotid artery peak systolic velocity: 79.7 cm/sec. ICA/CCA peak systolic ratio: 0.9 . [place] scale imaging description: Minimal plaque. No significant stenosis. Percent internal carotid artery stenosis: None . Vertebral artery: Flow direction is antegrade. Left side: Brachial blood pressure: 115/71 mm Hg. Common carotid artery peak systolic velocity: 106.4 cm/sec. Internal carotid artery peak systolic velocity: 68.8 cm/sec. Internal carotid artery end diastolic velocity: 30.1 cm/sec. External carotid artery peak systolic velocity: 100.6 cm/sec. ICA/CCA peak systolic ratio: 0.7 . [place] scale imaging description: Minimal plaque Percent internal carotid artery stenosis: None . Vertebral artery: Flow direction is antegrade. IMPRESSION: Minimal plaque. Widely patent carotids. Unremarkable study. Dictated by: Josué Ortiz M.D. on 08/04/2022 at 15:01 Approved by: Josué Ortiz M.D. on 08/04/2022 at 15:04
== END ==
PROVIDERS: PCP Nurse Practitioner Family; Referring Provider Nurse Practitioner Family; Visit Provider Nurse Practitioner Family
DX: I34.81 Nonrheumatic mitral (valve) annulus calcification (principal); R42 Dizziness and giddiness; Z86.79 Personal history of other diseases of the circulatory system
CPT/HCPCS: 93306; 93880

== ENCOUNTER → 2022-08-06 14:46 | Outpatient (CLI) | payer OTHER, SELFPAY ==
[2022-08-09 16:08] LABS: Creatinine, 24 Urine 1237 mg/24 hr (800-1800); Creatinine,Urine 70.7 mg/dL (Not Estab.); Dopamine, Ur 24hr 208 ug/24 hr (0-510); Epinephrine, U 24hr 7 ug/24 hr (0-20); Norepinephrine Ur 24hr 37 ug/24 hr (0-135)
[2022-08-12 23:25] LABS: Vanillylmandelic Acid Ur 1.9 mg/L (Undefined)
== END ==
PROVIDERS: PCP Nurse Practitioner Family; Referring Provider Nurse Practitioner Family; Visit Provider Nurse Practitioner Family
DX: R03.0 Elevated blood-pressure reading, without diagnosis of hypertension (principal); R42 Dizziness and giddiness
CPT/HCPCS: 82384; 84585

== ENCOUNTER 2022-08-10 02:44 | Emergency (ER) | payer OTHER, SELFPAY ==
[2022-08-10 02:45] VITALS: BP 154/80; PULSE 98; RESP 20; TEMP 36.8; O2SAT 98; BMI 28.3
[2022-08-10 02:50] VITALS: BP 154/80; PULSE 101; RESP 18; O2SAT 98
[2022-08-10 03:00] VITALS: BP 124/59; PULSE 86; RESP 18; O2SAT 96
--- NOTE | 2022-08-10 03:01 | DI.RAD.S_ITS ---
PROCEDURE: XR CHEST 1V INDICATIONS: chest pain TECHNIQUE: One view of the chest was acquired. COMPARISON: [facility], CR, XR CHEST 1V, 08/02/2021, 10:29. FINDINGS: Surgical changes and devices: None. Lungs and pleura: Lungs are clear. No pleural effusions or pneumothorax. Mediastinum: Mediastinal contours appear normal. Heart size is normal. Bones and chest wall: No suspicious bony lesions. Overlying soft tissues appear unremarkable. IMPRESSION: No acute cardiopulmonary disease. No significant discrepancy with the night order selector radiology preliminary report. Dictated by: Mildred Mcfadden M.D. on 08/10/2022 at 8:15 Approved by: Mildred Mcfadden M.D. on 08/10/2022 at 8:15
[2022-08-10 03:09] LABS: INR 0.9 (0.9-1.3); Prothrombin Time 10.1 SECONDS (10.1-12.7)
[2022-08-10 03:11] LABS: PTT Partial Thromboplastin Tim 31 SECONDS (26-36)
[2022-08-10 03:14] LABS: Add Manual Diff / Slide Review NO; Basophils Absolute Auto 100 /uL (0-100); Basophils Percent Auto 1.1 % (0-2); Eosinophils Absolute Auto 100 /uL (0-450); Eosinophils Percent Auto 1.9 % (2-4); Hematocrit 44.4 % (36-46); Hemoglobin 15.2 g/dL (12.0-16.0); Lymphocytes Absolute Auto 3800 /uL (1100-4500); Lymphocytes Percent Auto 57.8 % (25-40); Mean Corpuscular HGB Conc 34.2 % (30-36); Mean Corpuscular Hemoglobin 30.8 PG (26-34); Mean Corpuscular Volume 89.9 fL (80-100); Monocytes Absolute Auto 500 /uL (0-900); Monocytes Percent Auto 7.1 % (3-14); Neutrophils Absolute Auto 2100 /uL (1500-7000); Neutrophils Percent Auto 32.1 % (50-75); Platelet Count 219 X10^3/uL (150-400); Red Blood Cell Count 4.94 X10^6/uL (4.0-5.2); Red Cell Distribution Width 12.9 % (11.6-14.8); White Blood Cell Count 6.6 X10^3/uL (4.5-11.0)
[2022-08-10 03:15] LABS: Alanine Aminotransferase 42 IU/L (<35); Albumin 4.5 g/dL (3.5-5.0); Albumin Globulin Ratio 1.5 (1.0-2.8); Alkaline Phosphatase 62 U/L (38-126); Aspartate Aminotransferase 37 IU/L (14-36); BUN Creatinine Ratio 20.2 (6-22); Blood Urea Nitrogen 20 mg/dL (7-17); Calcium 8.9 mg/dL (8.4-10.2); Carbon Dioxide 23 mmol/L (22-32); Chloride 102 mmol/L (98-107); Creatine Kinase 61 U/L (30-135); Estimated Glomerular Filt Rate > 60 mL/min (>60); Globulin 3.1 g/dL (1.7-4.1); Glucose 132 mg/dL (80-110); HEMOLYSIS 39 (0-50); Lipase 105 U/L (23-300); Magnesium 1.8 mg/dL (1.6-2.3); Potassium 3.7 mmol/L (3.4-5.1); Sodium 136 mmol/L (137-145); Total Protein 7.6 g/dL (6.3-8.2)
[2022-08-10 03:26] LABS: Troponin I < 0.012 ng/mL (0.01-0.034)
[2022-08-10 03:30] VITALS: BP 118/73; PULSE 85; RESP 16; O2SAT 96
--- NOTE | 2022-08-10 03:41 | ED_ITS ---
HPI - Arrhythmia/Palpitations General Chief Complaint: Arrhythmia/Palpitations Stated Complaint: racing heart rate Time Seen by Provider: 08/10/22 03:06 Source: patient Mode of arrival: Ambulatory History of Present Illness HPI narrative: Patient is a 62-year-old female who is here for evaluation of palpitations and racing heart. She states that in the past several weeks she has had occasional episodes of racing heart rate specifically at night. She has seen her primary doctor and also cottonseed meat presser. She finished wearing a Holter monitor less than 24 hours ago and sent it back to the [employer]. That was because she was having palpitations and also some occasional vision changes. She stated that last evening she started to have the sensation that her heart is beating fast. States she got very anxious with it. Did have a small amount of discomfort. No lightheadedness. No shortness of breath. Symptoms were becoming persistent which brought her into the emergency department. At the time of my evaluation she was not having any symptoms and has not had any symptoms since arrival here. Related Data Home Medications Medication Instructions Recorded Confirmed atorvastatin 10 mg tablet 10 mg PO DAILY 04/08/22 04/08/22 Allergies Allergy/AdvReac Type Severity Reaction Status Date / Time No Known Drug Allergies Allergy Verified 04/19/22 13:12 Review of Systems Constitutional Constitutional: Reports system reviewed and no additional complaints, except as documented Cardiovascular Cardiovascular: Reports system reviewed and no additional complaints, except as documented Respiratory Respiratory: Reports system reviewed and no additional complaints, except as documented Hematologic/Lymphatic On Anticoagulants: No Patient History Medical History Heartburn Hyperlipidemia Nephrolithiasis Rosacea Surgical History History of History of laparoscopy Social History Smoking Status: Never smoker Smoking Status: Never smoker alcohol intake frequency: a few times a week Alcohol type: wine Substance Use Type: does not use Exam Initial Vital Signs Initial Vital Signs: Vital Signs Temperature 98.3 F 08/10/22 02:45 Pulse Rate 98 H 08/10/22 02:45 Respiratory Rate 20 08/10/22 02:45 Blood Pressure 154/80 H 08/10/22 02:45 Pulse Oximetry 98 08/10/22 02:45 Oxygen Delivery Method Room Air 08/10/22 02:45 Const General: cooperative, comfortable and No ill appearing HENMT Head: normal to inspection and normocephalic Resp Effort & Inspection: normal respiratory effort Auscultation: clear to auscultation bilaterally Cardio Rate: regular rate Rhythm: regular rhythm Extrem General: No edema Course Orders Ordered: ED Orders 08/10/22 02:57 Complete Blood Count AUTO DIFF Stat Comprehensive Metabolic Panel Stat Lipase Stat Magnesium Stat PTT Partial Thromboplastin Kareem Stat Prothrombin Time INR Stat Troponin & CK Cardiac Panel Stat 08/10/22 03:01 XR chest 1V Stat COVID19 -Nasal RAPID Stat EKG-12 Lead Stat Discontinued Medications Aspirin (Aspirin 81 Mg Chew Tab) 324 mg PO NOW ONE Stop: 08/10/22 03:02 Vital Signs Vital signs: Vital Signs - 8 hr 08/10/22 02:45 Temperature 98.3 F Pulse Rate 98 H Respiratory Rate 20 Blood Pressure 154/80 H Pulse Oximetry 98 Oxygen Delivery Method Room Air MDM - Arrhythmia/Palpitations Medical Records Attestation: I reviewed the patient's medical records. Lab Data Attestation: I reviewed the patient's lab results. 08/10/22 02:57 08/10/22 02:57 Labs: Lab Results 08/10/22 08/10/22 08/10/22 Range/Units 02:57 02:57 02:57 WBC 6.6 (4.5-11.0) X10^3/uL RBC 4.94 (4.0-5.2) X10^6/uL Hgb 15.2 (12.0-16.0) g/dL Hct 44.4 (36-46) % MCV 89.9 (80-100) fL MCH 30.8 (26-34) PG MCHC 34.2 (30-36) % RDW 12.9 (11.6-14.8) % Plt Count 219 (150-400) X10^3/uL Neut % (Auto) 32.1 L (50-75) % Lymph % (Auto) 57.8 H (25-40) % [place] % (Auto) 7.1 (3-14) % Eos % (Auto) 1.9 L (2-4) % Baso % (Auto) 1.1 (0-2) % Neut # (Auto) 2100 (6869-3445) /uL Lymph # (Auto) 3800 (0770-5877) /uL [place] # (Auto) 500 (0-900) /uL Eos # (Auto) 100 (0-450) /uL Baso # (Auto) 100 (0-100) /uL PT 10.1 (10.1-12.7) SECONDS INR 0.9 (0.9-1.3) APTT 31 (26-36) SECONDS Sodium 136 L (137-145) mmol/L Potassium 3.7 (3.4-5.1) mmol/L Chloride 102 (98-107) mmol/L Carbon Dioxide 23 (22-32) mmol/L BUN 20 H (7-17) mg/dL Creatinine 0.99 (0.52-1.04) mg/dL Estimated GFR > 60 (>60) mL/min BUN/Creatinine Ratio 20.2 (6-22) Glucose 132 H (80-110) mg/dL Calcium 8.9 (8.4-10.2) mg/dL Magnesium 1.8 (1.6-2.3) mg/dL Total Bilirubin 1.0 (0.2-1.3) mg/dL AST 37 H (14-36) IU/L ALT 42 H (<35) IU/L Alkaline Phosphatase 62 (38-126) U/L Total Creatine Kinase 61 (30-135) U/L CK-MB (CK-2) TNP CK-MB (CK-2) Rel Index TNP Troponin I < 0.012 (0.01-0.034) ng/mL Total Protein 7.6 (6.3-8.2) g/dL Albumin 4.5 (3.5-5.0) g/dL Globulin 3.1 (1.7-4.1) g/dL Albumin/Globulin Ratio 1.5 (1.0-2.8) Lipase 105 (23-300) U/L Imaging Data Chest x-ray: Radiologist's Impresson: No acute cardiopulmonary disease ECG Data Attestation: I personally reviewed and interpreted this ECG as follows: Interpretation: Sinus rhythm Ventricular rate 82 Normal axis Normal QRS Normal QTC No ST T wave changes MDM Narrative Medical decision making narrative: Patient is asymptomatic and she is in sinus rhythm here in the emergency department. Her labs and chest x-ray are unremarkable. Informed her that the most helpful thing would be the results of the Holter monitor that she just c ompleted yesterday. Low suspicion for ACS. No further workup required in the emergency department. Will discharge patient home to continue to take her medications as directed and follow-up with her cottonseed meat presser. She was given return precautions. She expressed understanding and agreement. Discharge Plan Departure Patient Disposition: Home Clinical Impression: Palpitations Instructions: Arrhythmias Activity Restrictions/Additional Instructions: Recommend that you continue to take all of your medications as directed and contact the cottonseed meat presser for a follow-up. Return to the emergency department for any new or worsening symptoms. Prescriptions: No Action atorvastatin 10 mg tablet 10 mg PO DAILY Referrals: Sonam Ching ARNP [Primary Care Provider] - Stand Alone Forms: Patient Portal/API
[2022-08-10] MEDS: ASPIRIN 81 MG CHEW TAB 324 MG PO (03:53)
[2022-08-10 04:00] VITALS: BP 118/58; PULSE 83; RESP 16; O2SAT 97
--- NOTE | 2022-08-10 04:06 | ED_ITS ---
HPI - Arrhythmia/Palpitations General Chief Complaint: Arrhythmia/Palpitations Stated Complaint: racing heart rate Time Seen by Provider: 08/10/22 03:06 Source: patient Mode of arrival: Ambulatory Related Data Home Medications Medication Instructions Recorded Confirmed atorvastatin 10 mg tablet 10 mg PO DAILY 04/08/22 04/08/22 Allergies Allergy/AdvReac Type Severity Reaction Status Date / Time No Known Drug Allergies Allergy Verified 04/19/22 13:12 Patient History Medical History Heartburn Hyperlipidemia Nephrolithiasis Rosacea Surgical History History of History of laparoscopy Social History Smoking Status: Never smoker Smoking Status: Never smoker alcohol intake frequency: a few times a week Alcohol type: wine Substance Use Type: does not use Exam Initial Vital Signs Initial Vital Signs: Vital Signs Temperature 98.3 F 08/10/22 02:45 Pulse Rate 98 H 08/10/22 02:45 Respiratory Rate 20 08/10/22 02:45 Blood Pressure 154/80 H 08/10/22 02:45 Pulse Oximetry 98 08/10/22 02:45 Oxygen Delivery Method Room Air 08/10/22 02:45 Course Orders Ordered: ED Orders 08/10/22 02:57 Complete Blood Count AUTO DIFF Stat Comprehensive Metabolic Panel Stat Lipase Stat Magnesium Stat PTT Partial Thromboplastin Kareem Stat Prothrombin Time INR Stat Troponin & CK Cardiac Panel Stat 08/10/22 03:01 XR chest 1V Stat COVID19 -Nasal RAPID Stat EKG-12 Lead Stat Discontinued Medications Aspirin (Aspirin 81 Mg Chew Tab) 324 mg PO NOW ONE Stop: 08/10/22 03:02 Last Admin: 08/10/22 03:53 Dose: 324 mg Documented By: LYNNE Vital Signs Vital signs: Vital Signs - 8 hr 08/10/22 02:45 08/10/22 02:50 Temperature 98.3 F Pulse Rate 98 H 101 H Respiratory Rate 20 18 Blood Pressure 154/80 H 154/80 H Pulse Oximetry 98 98 Oxygen Delivery Method Room Air Room Air MDM - Arrhythmia/Palpitations Lab Data 08/10/22 02:57 08/10/22 02:57 Labs: Lab Results 08/10/22 08/10/2208/10/23 Range/Units 02:57 02:57 02:57 WBC 6.6 (4.5-11.0) X10^3/uL RBC 4.94 (4.0-5.2) X10^6/uL Hgb 15.2 (12.0-16.0) g/dL Hct 44.4 (36-46) % MCV 89.9 (80-100) fL MCH 30.8 (26-34) PG MCHC 34.2 (30-36) % RDW 12.9 (11.6-14.8) % Plt Count 219 (150-400) X10^3/uL Neut % (Auto) 32.1 L (50-75) % Lymph % (Auto) 57.8 H (25-40) % [place] % (Auto) 7.1 (3-14) % Eos % (Auto) 1.9 L (2-4) % Baso % (Auto) 1.1 (0-2) % Neut # (Auto) 2100 (7784-4616) /uL Lymph # (Auto) 3800 (9725-4149) /uL [place] # (Auto) 500 (0-900) /uL Eos # (Auto) 100 (0-450) /uL Baso # (Auto) 100 (0-100) /uL PT 10.1 (10.1-12.7) SECONDS INR 0.9 (0.9-1.3) APTT 31 (26-36) SECONDS Sodium 136 L (137-145) mmol/L Potassium 3.7 (3.4-5.1) mmol/L Chloride 102 (98-107) mmol/L Carbon Dioxide 23 (22-32) mmol/L BUN 20 H (7-17) mg/dL Creatinine 0.99 (0.52-1.04) mg/dL Estimated GFR > 60 (>60) mL/min BUN/Creatinine Ratio 20.2 (6-22) Glucose 132 H (80-110) mg/dL Calcium 8.9 (8.4-10.2) mg/dL Magnesium 1.8 (1.6-2.3) mg/dL Total Bilirubin 1.0 (0.2-1.3) mg/dL AST 37 H (14-36) IU/L ALT 42 H (<35) IU/L Alkaline Phosphatase 62 (38-126) U/L Total Creatine Kinase 61 (30-135) U/L CK-MB (CK-2) TNP CK-MB (CK-2) Rel Index TNP Troponin I < 0.012 (0.01-0.034) ng/mL Total Protein 7.6 (6.3-8.2) g/dL Albumin 4.5 (3.5-5.0) g/dL Globulin 3.1 (1.7-4.1) g/dL Albumin/Globulin Ratio 1.5 (1.0-2.8) Lipase 105 (23-300) U/L Discharge Plan Departure Patient Disposition: Home Clinical Impression: Palpitations Instructions: Arrhythmias Activity Restrictions/Additional Instructions: Recommend that you continue to take all of your medications as directed and contact the assistant to the president for a follow-up. Return to the emergency department for any new or worsening symptoms. Prescriptions: No Action atorvastatin 10 mg tablet 10 mg PO DAILY Referrals: Sonam Ching ARNP [Primary Care Provider] - Stand Alone Forms: Patient Portal/API
== END 2022-08-10 04:05 | disposition home or self-care (01) ==
PROVIDERS: Emergency Provider Emergency Medicine; PCP Nurse Practitioner Family
DX: R00.2 Palpitations (principal)
CPT/HCPCS: 36415; 71045; 80053; 82550; 83690; 83735; 84484; 85025; 85610; 85730; 93005; 99284

== ENCOUNTER → 2023-01-11 15:12 | Outpatient (CLI) | payer OTHER, SELFPAY ==
--- NOTE | 2023-01-12 10:24 | DI.NM.S_ITS ---
DATE OF SERVICE: 01/11/2023 PROCEDURE: Exercise stress test. INDICATIONS: Palpitation. CARDIAC STRESS: The patient underwent exercise stress test under the supervision of an attending staff. She walked on Misha protocol for 8 minutes and 29 seconds, achieved maximum heart rate of 147, which was 94% of target heart rate. Resting blood pressure 122/80 mmHg and peak blood pressure 166/78 mmHg. Baseline rhythm was sinus. During stress, no convincing ischemic changes seen. The patient had isolated PVCs without any ventricular tachycardia. Occasional ventricular couplets. The patient felt leg pain. The patient had chest tightness on a scale of 1-10. Started early in exercise, which did not get worse with exercise and resolved at rest. No sustained ventricular tachycardia or AFib seen. CONCLUSION: Exercise stress test is negative for inducible ischemia. Good exercise tolerance. Functional aerobic impairment -29%. Normal hemodynamic response. Occasional isolated premature ventricular contractions and ventricular couplets without any ventricular tachycardia or atrial fibrillation. Minimal chest tightness, which did not get worse with exertion. Overall, low-risk exercise stress test. Yuliya Shore - MEGAN/david/[place] doc#: [id number]/job#: [id number] dd: 01/11/2023 17:59:00 dt: 01/11/2023 22:41:00 DICTATING /COPIES TO: Marcos Templeton MD COPIES MNE: SHAYE;
== END ==
PROVIDERS: Referring Provider Internal Medicine Cardiovascular Disease; Visit Provider Internal Medicine Cardiovascular Disease
DX: R00.2 Palpitations (principal)
CPT/HCPCS: 93017

== ENCOUNTER → 2023-08-16 11:43 | Outpatient (CLI) | payer OTHER, SELFPAY ==
[2023-08-16 13:24] LABS: Alanine Aminotransferase 36 IU/L (<35); Albumin 4.1 g/dL (3.5-5.0); Albumin Globulin Ratio 1.4 (1.0-2.8); Alkaline Phosphatase 52 U/L (38-126); Aspartate Aminotransferase 30 IU/L (14-36); BUN Creatinine Ratio 23.8 (6-22); Bilirubin Total 1.2 mg/dL (0.2-1.3); Blood Urea Nitrogen 19 mg/dL (7-17); Calcium 9.2 mg/dL (8.4-10.2); Carbon Dioxide 30 mmol/L (22-32); Chloride 106 mmol/L (98-107); Estimated Glomerular Filt Rate > 60 mL/min (>60); Glucose 112 mg/dL (80-110); HEMOLYSIS < 15 (0-50); Potassium 4.4 mmol/L (3.4-5.1); Sodium 138 mmol/L (137-145); Total Protein 7.1 g/dL (6.3-8.2)
== END ==
PROVIDERS: Referring Provider Nurse Practitioner; Visit Provider Nurse Practitioner
DX: R03.0 Elevated blood-pressure reading, without diagnosis of hypertension (principal)
CPT/HCPCS: 36415; 80053

== ENCOUNTER → 2024-02-13 11:18 | Outpatient (CLI) | payer OTHER, SELFPAY ==
[2024-02-13 12:53] LABS: Cholesterol 186 mg/dL (140-199); HDL Cholesterol 52 mg/dL (40-60); LDL Cholesterol Calculated 113 mg/dL (<100); Triglycerides 106 mg/dL (35-150)
== END ==
PROVIDERS: Referring Provider Nurse Practitioner; Visit Provider Nurse Practitioner
DX: E78.5 Hyperlipidemia, unspecified (principal)
CPT/HCPCS: 36415; 80061

== ENCOUNTER 2024-03-06 08:03 | Day surgery (SDC) | payer OTHER, SELFPAY ==
[2024-03-06 08:24] VITALS: BP 127/69; PULSE 97; RESP 16; TEMP 36.3; O2SAT 91
[2024-03-06] MEDS: LACTATED RINGERS 1,000 ML 42 ML IV (08:32)
--- NOTE | 2024-03-06 08:41 | PM.HP.1 ---
History of Present Illness History of Present Illness Date Patient Seen: 03/06/24 Time Patient Seen: 08:41 Chief complaint: Screening Colonoscopy Narrative: 63-year-old woman here for screening colonoscopy. Her mother had colon cancer. Her last colonoscopy was 10 years ago normal. No abdominal concerns today. [facility], LAT[facility] Medical History Rosacea Heartburn Hyperlipidemia Nephrolithiasis Surgical History History of History of laparoscopy Social History Smoking Status: Never smoker alcohol intake: current Meds Home Medications and Allergies Home Medications Medication Instructions Recorded Confirmed Type atorvastatin 10 mg tablet 10 mg PO DAILY 04/08/22 03/06/24 History metoprolol succinate 25 mg 25 mg PO DAILY 03/06/24 03/06/24 History tablet,extended release 24 hr Allergies Allergy/AdvReac Type Severity Reaction Status Date / Time No Known Drug Allergies Allergy Verified 03/06/24 08:15 Exam Vital Signs (past 8 hours): - 03/06/24 08:24 Temperature 97.4 F L Pulse Rate 97 H Respiratory Rate 16 Blood Pressure 127/69 Pulse Oximetry 91 Oxygen Delivery Method Room Air Oxygen Delivery Method Room Air Narrative Exam Narrative: General adult woman alert oriented no acute distress Chest nonlabored respiration Extremities warm well perfused Assessment & Plan Assessment and plan (1) Family history of colon cancer: Status: Acute Assessment & Plan narrative: The patient requires colorectal screening and colonoscopy is recommended. Technical details were discussed. Risks, benefits, alternatives explained. Risks including but not limited to myocardial infarction, aspiration, bleeding, pain, missed lesion, incomplete examination, need for further radiographic studies, intestinal injury, and need for major abdominal surgery were discussed. All questions were answered to their satisfaction, and they are in agreement with this plan. Time-Based Coding :: [TOTAL MINUTES] spent with patient and on the chart (including review of chart, obtaining history, exam, reviewing outside data, placing orders, documenting exam and treatment plan, and counseling patient) on [DATE].
[2024-03-06 09:20] VITALS: BP 85/66; PULSE 74; RESP 18; TEMP 36.4; O2SAT 94
--- NOTE | 2024-03-06 09:22 | P.OP.COLON_ITS ---
Operative Date/Time/Diagnoses Date of procedure: 03/06/24 Time of procedure: 09:22 Pre-op diagnosis: Family history of colon cancer Procedure & Clinicians Study performed: Screening colonoscopy Same procedure as scheduled: Yes Indications: Screening Family history of colon cancer Surgeon: Nicolas Stiles Procedure Notes Procedure in detail: The history and physical was performed/updated and the patient is ASA class is 2. The procedure was discussed in detail with the patient. Potential risks complications including infection, bleeding, missed diagnosis, perforation, need for surgery, and were explained. Their questions were answered and informed consent was obtained. Patient was brought to the procedure room and placed standard monitoring equipment. The patient's vital signs were monitored continuously throughout the entire procedure. Prior to starting time-out was performed. The patient was placed in the left lateral recumbent position. Procedural sedation was administered by anesthesia. Examination began with a thorough inspection of the perianal area there was no evidence of fissures, fistulae, external hemorrhoids or cutaneous malignancy. The colonoscopy scope was then placed into the anal canal and was advanced to the cecum, which was identified by the ileocecal valve, the appendiceal orifice and the confluence of the taenia. The scope was then slowly withdrawn examining colon thoroughly in all directions, irrigating it of any residual stool. The scope was retroflexed within the rectum The patient tolerated the procedure well. They will be discharged once criteria are met. The prep was of good/excellent quality. The withdrawl time was 7 minutes. FINDINGS * Unremarkable colonoscopy. Normal healthy colonic mucosa without mass or polyps. Specimen(s): none sent Impression: Normal colonoscopy Post-procedure Recommendations: Colonoscopy in 5 years (Family history of colon cancer) Disposition: same day surgery
[2024-03-06 09:25] VITALS: BP 90/56; PULSE 67; RESP 18; TEMP 36.4; O2SAT 97
[2024-03-06] MEDS: ALBUTEROL 2.5 MG/3 ML NEB (ADULT) INH (09:25)
[2024-03-06 09:32] VITALS: BP 102/50; PULSE 75; RESP 18; TEMP 36.3; O2SAT 95
[2024-03-06 09:50] VITALS: PULSE 64; RESP 14; O2SAT 96
== END 2024-03-06 09:54 | disposition home or self-care (01) ==
PROVIDERS: Referring Provider Surgery; Visit Provider Surgery
PROC: 0DJD8ZZ Inspection of Lower Intestinal Tract, Via Natural or Artificial Opening Endoscopic (ICD-10-PCS; CPT 45378; principal; 2024-03-06 09:15)
DX: Z12.11 Encounter for screening for malignant neoplasm of colon (principal); Z80.0 Family history of malignant neoplasm of digestive organs
CPT/HCPCS: 45378; J2704; J7613

== ENCOUNTER → 2024-09-13 12:06 | Outpatient (CLI) | payer MEDICARE, OTHER, SELFPAY ==
--- NOTE | 2024-09-13 12:32 | DI.CT.S_ITS ---
PROCEDURE: CT HEAD/BRAIN WO CON INDICATIONS: CHRONIC VERTIGO/DIZZINESS AND MIOTIC PUPIL TECHNIQUE: Noncontrast 4.5 mm thick angled axial sections acquired from the foramen magnum to the vertex, with coronal and sagittal reformats. For radiation dose reduction, the following was used: automated exposure control, adjustment of mA and/or kV according to patient size. COMPARISON: [facility], MR, MR HEAD/BRAIN WO CON, 04/08/2022, 15:42. [facility], CT, CT HEAD/BRAIN WO CON, 04/08/2022, 14:59. FINDINGS: Image quality: Streak artifact can be seen through the skull base. CSF spaces: Basal cisterns are patent. No extra-axial fluid collections. The ventricles are symmetric in size and shape. Brain: No intracranial bleeds or masses. There is cerebral volume loss for age, with resultant ventricular and sulcal prominence. There are periventricular and deep white matter chronic small vessel ischemic changes. There is intracranial internal carotid artery atherosclerosis. Skull and face: Calvarium and visualized facial bones appear intact, without suspicious lesions. Sinuses: Visualized sinuses and mastoids are clear. IMPRESSION: No imaging explanation is found for this patient's presenting symptoms. To the limits of this noncontrast study, no findings of intracranial masses or mass effect can be seen. Dictated by: Pierce Enamorado M.D. on 09/13/2024 at 12:07 Approved by: Pierce Enamorado M.D. on 09/13/2024 at 12:09
== END ==
PROVIDERS: Referring Provider Family Medicine; Visit Provider Family Medicine
DX: R42 Dizziness and giddiness (principal); H21.569 Pupillary abnormality, unspecified eye
CPT/HCPCS: 70450